=== PATIENT | male | born 1975 | race Caucasian/White ===

== ENCOUNTER 2016-09-17 17:11 | Emergency (ER) | payer MEDICARE ==
[~2016-09-17] VITALS: Ht 175.3 cm; Wt 89.0 kg
[~2016-09-17 17:11] MED LIST: METO50TA PO
[2016-09-17 17:29] VITALS: BP 172/111; PULSE 75; RESP 16; TEMP 98.5; O2SAT 99
[2016-09-17] MEDS ORDERED: SODIUM CHLORIDE 0.9% FLUSH 5 ML FLUSH IVF PRN (18:15)
[2016-09-17] MEDS ORDERED: amLODIPine BESYLATE 5 MG TAB PO ONE (18:15)
--- NOTE | 2016-09-17 18:18 | PD ---
HPI Chief Complaint: ENT Complaint Time Seen by Provider: 17:58 Travel History International Travel<30 days: No Contact w/Intl Traveler<30days: No Traveled to known affect area: No History of Present Illness HPI Patient is a 41-year-old male who presents to emergency room with complaints of nosebleed. Patient reports that he woke up this morning and had an nosebleed to bilateral nares, denies any trauma to his nose. Patient reports that he put a piece of toilet paper into both of his nostrils, and put his head back, reports that he felt that the blood was dripping to the back of his throat. Patient did not apply any pressure to his nose during his epistasis. Patient reports that he had constant nosebleed and reports that bleeding stopped around 1pm this afternoon. Reports that he does not feel light headed or dizzy at this time. Reports that he has resolution of nosebleed. Patient reports concern as he is supposed to be on blood pressure medications, reports that he has not taken his blood pressure medications for the past 3 months as he recently moved and doesn't have a primary care doctor. Patient unsure of which medication he was on in the past as he broke his phone and does not have access to his medication list. Patient also reports that he noticed some dark stools today, reports that he has never had this in the past, reports "i think it's because i swallowed alot of blood today." PFSH Past Medical History Depression: Yes Cardiovascular Problems: Yes (HTN) Diminished Hearing: Yes (Loss of Hearing Bilaterally.) Hypertension: Yes Neurologic: Yes Psychiatric: Yes Immunizations Current: Yes Tetanus Vaccination: Unknown Influenza Vaccination: No Past Surgical History Other Surgery: Yes (Brain Surgery on right side.) Social History Alcohol Use: Yes (OCCASIONAL) Tobacco Use: Yes (1 PPD) Substance Use: No (Patient denies any current use/abuse) Allergies-Medications (Allergen,Severity, Reaction): Coded Allergies: Penicillin (Unverified Allergy, Unknown, 05/01/15) Per pt. Per [facility], [place], [place]. [phone]. Reported Meds & Prescriptions Reported Meds & Active Scripts Active Review of Systems General / Constitutional: No: Fever Eyes: No: Visual changes HENT: Positive: Nosebleed, No: Headaches Cardiovascular: No: Chest Pain or Discomfort Respiratory: No: Shortness of Breath Gastrointestinal: No: Abdominal Pain Genitourinary: No: Dysuria Musculoskeletal: No: Pain Skin: No Rash Neurologic: No: Weakness Psychiatric: No: Depression Endocrine: No: Polydipsia Hematologic/Lymphatic: No: Easy Bruising Physical Exam Narrative GENERAL: nad, nontoxic SKIN: Warm and dry. HEAD: Atraumatic. Normocephalic. EYES: Pupils equal and round. No scleral icterus. No injection or drainage. ENT: No nasal bleeding or discharge. Mucous membranes pink and moist. Patient with dried blood to anterior right nares, no active bleeding NECK: Trachea midline. No JVD. CARDIOVASCULAR: Regular rate and rhythm. No murmur appreciated. RESPIRATORY: No accessory muscle use. Clear to auscultation. Breath sounds equal bilaterally. GASTROINTESTINAL: Abdomen soft, non-tender, nondistended. Hepatic and splenic margins not palpable. MUSCULOSKELETAL: No obvious deformities. No clubbing. No cyanosis. No edema. NEUROLOGICAL: Awake and alert. No obvious cranial nerve deficits. Motor grossly within normal limits. Normal speech. PSYCHIATRIC: Appropriate mood and affect; insight and judgment normal. Data Data Last Documented VS Vital Signs Date Time Temp Pulse Resp B/P Pulse Ox O2 Delivery O2 Flow Rate FiO2 09/17/16 18:27 68 15 158/90 96 Room Air 09/17/16 17:29 98.5 Orders Amlodipine (Norvasc) (09/17/16 18:15) Complete Blood Count With Diff (09/17/16 18:12) Iv Access Insert/Monitor (09/17/16 18:12) Ecg Monitoring (09/17/16 18:12) Oximetry (09/17/16 18:12) Sodium Chloride 0.9% Flush (Ns Flush) (09/17/16 18:15) Labs Laboratory Tests Test 09/17/16 18:25 White Blood Count 9.4 TH/MM3 Red Blood Count 5.37 MIL/MM3 Hemoglobin 15.7 GM/DL Hematocrit 47.1 % Mean Corpuscular Volume 87.6 FL Mean Corpuscular Hemoglobin 29.2 PG Mean Corpuscular Hemoglobin 33.3 % Concent Red Cell Distribution Width 13.0 % Platelet Count 220 TH/MM3 Mean Platelet Volume 9.3 FL Neutrophils (%) (Auto) 57.2 % Lymphocytes (%) (Auto) 24.2 % Monocytes (%) (Auto) 11.1 % Eosinophils (%) (Auto) 6.7 % Basophils (%) (Auto) 0.8 % Neutrophils # (Auto) 5.4 TH/MM3 Lymphocytes # (Auto) 2.3 TH/MM3 Monocytes # (Auto) 1.0 TH/MM3 Eosinophils # (Auto) 0.6 TH/MM3 Basophils # (Auto) 0.1 TH/MM3 CBC Comment DIFF FINAL Differential Comment MDM Medical Decision Making Medical Screen Exam Complete: Yes Emergency Medical Condition: Yes Interpretation(s) Vital Signs Date Time Temp Pulse Resp B/P Pulse Ox O2 Delivery O2 Flow Rate FiO2 09/17/16 17:29 98.5 75 16 172/111 99 Differential Diagnosis Accelerated hypertension, epistasis Narrative Course Patient is a 41-year-old male who presents to emergency room with complaints of epistasis. Patient reports that he had nosebleed from this morning until 1 PM this afternoon, patient did not apply pressure to his nose during bleeding. Patient reports that he does not feel lightheaded or dizzy at this time. Patient reports that he associated is epistasis from high blood pressure as he is supposed to be on blood pressure medications but ran out of his prescription 3 months ago. Patient's blood pressure 172/111 while in the emergency room, patient asymptomatic at this time. Plan to check patient's hemoglobin, will start patient on Norvasc 5 mg. Patient understands need to follow-up with his primary care doctor as soon as possible. Patient with no nosebleed at this time , I did educate patient on had no blood pressure on his nose to stop future nosebleed. Patient defers rectal exam at this time. I did recommend the patient see a GI specialist for colonoscopy as he reports history of cancer in the family. CBC & BMP Diagram 09/17/16 18:25 Hemoglobin is 15.7. Patient will return to emergency room as needed, understands importance of follow-up with primary care doctor and understands need for smoking cessation Diagnosis Primary Impression: Hypertension Qualified Code: I10 - Essential hypertension Additional Impressions: Epistaxis Smoking addiction Patient Instructions: General Instructions Additional Instructions: Please follow-up with your primary care doctor as soon as possible Please follow-up with manager [facility] for outpatient colonoscopy Return to the emergency room as needed Med/Other Pt SpecificInfo: Prescription(s) given Scripts Amlodipine (Norvasc)5 Mg Tab5 Mg PO DAILY #30 TAB Ref 0 Prov:Sri Schaefer DO 09/17/16 Disposition: 01 DISCHARGE HOME Condition: Stable Sri Schaefer DO Sep 17, 2016 18:18
[2016-09-17 18:27] VITALS: BP 158/90; PULSE 68; RESP 15; O2SAT 96
[2016-09-17 18:29] LABS: AUTOMATED NEUTROPHIL # 5.4 TH/MM3 (1.8-7.7); BASOPHIL # 0.1 TH/MM3 (0-0.2); BASOPHIL % 0.8 % (0.0-2.0); EOSINOPHIL # 0.6 TH/MM3 (0-0.4); EOSINOPHIL % 6.7 % (0.0-4.0); HEMATOCRIT 47.1 % (39.0-51.0); HEMO FLAGS DIFF FINAL; LYMPH % 24.2 % (9.0-44.0); LYMPHOCYTE # 2.3 TH/MM3 (1.0-4.8); MEAN CELL VOLUME 87.6 FL (80.0-100.0); MEAN CORPUSCULAR HEMOGLOBIN 29.2 PG (27.0-34.0); MEAN CORPUSCULAR HGB CONC 33.3 % (32.0-36.0); MONO % 11.1 % (0.0-8.0); NEUT % 57.2 % (16.0-70.0); PLATELET COUNT 220 TH/MM3 (150-450); RED BLOOD COUNT 5.37 MIL/MM3 (4.50-5.90); WHITE BLOOD COUNT 9.4 TH/MM3 (4.0-11.0)
[2016-09-17] MEDS ORDERED: AMLO5 PO (18:37)
== END 2016-09-17 18:54 | disposition home or self-care (01) ==
LOC: PHED 17:11 → PHEFT 18:54
DX: R04.0 Epistaxis (principal); I10 Essential (primary) hypertension; F17.210 Nicotine dependence, cigarettes, uncomplicated; Z91.14 Patient's other noncompliance with medication regimen; F41.9 Anxiety disorder, unspecified
CPT/HCPCS: 85025; 99283

== ENCOUNTER 2017-12-28 12:05 | Emergency (ER) | payer MEDICARE ==
[~2017-12-28] VITALS: Ht 175.3 cm; Wt 76.0 kg
[~2017-12-28 12:05] MED LIST changes: +AMLO5 PO; -METO50TA PO
[2017-12-28 12:20] VITALS: BP 141/71; PULSE 94; RESP 16; TEMP 99; O2SAT 96
== END 2017-12-28 13:00 | disposition left against medical advice (07) ==
LOC: PHED 12:05
DX: R10.13 Epigastric pain (principal); R53.1 Weakness; Z53.21 Procedure and treatment not carried out due to patient leaving prior to being seen by health care provider
CPT/HCPCS: 99281

== ENCOUNTER 2017-12-29 00:57 | Inpatient (IN) | payer MEDICARE ==
[2017-12-29] VITALS (10 sets, daily range): BP systolic 126–162; BP diastolic 69–100; PULSE 48–94; RESP 16–20; TEMP 96.2–99; O2SAT 95–97
[~2017-12-29] VITALS: Ht 175.3 cm; Wt 78.1 kg
[2017-12-29] MEDS ORDERED: SODIUM CHLOR 0.9% 1000 ML INJ 1,000 ML IV SCH (01:33)
--- NOTE | 2017-12-29 01:33 | PD ---
HPI Chief Complaint: GI Complaint Time Seen by Provider: 01:23 Travel History International Travel<30 days: No Contact w/Intl Traveler<30days: No Traveled to known affect area: No History of Present Illness HPI The patient is a 42-year-old male with a history of alcohol abuse who complains of upper abdominal pain and vomiting for the past 3 weeks. He denies any melanotic or bloody stools and he denies blood in the vomitus. He states his last alcohol was a week ago when he vomited immediately after he drank it. He states he drank 4 beers a 1 week ago. He denies any fever. His pain is midline epigastric and a burning pain of 6/10. PFSH Past Medical History Depression: Yes Cardiovascular Problems: Yes (HTN) Diminished Hearing: Yes (Loss of Hearing Bilaterally.) Hypertension: Yes Neurologic: Yes Psychiatric: Yes Immunizations Current: Yes Tetanus Vaccination: > 5 Years Influenza Vaccination: No Past Surgical History Other Surgery: Yes (Brain Surgery on right side.) Social History Alcohol Use: Yes (OCCASIONAL) Tobacco Use: Yes (1 PPD) Substance Use: No (Patient denies any current use/abuse) Allergies-Medications (Allergen,Severity, Reaction): Coded Allergies: penicillin G (Unverified Allergy, Unknown, 12/28/17) Per pt. Per [place], [place]. [phone]. Reported Meds & Prescriptions Reported Meds & Active Scripts Active Norvasc (Amlodipine Besylate) 5 Mg Tab 5 Mg PO DAILY Review of Systems Except as stated in HPI: all other systems reviewed are Neg Physical Exam Narrative GENERAL: The patient is alert, oriented 3, moderately dehydrated appearing in moderate apparent distress with the midline epigastric discomfort. His temperature is 99.0 and heart rate 94 but the rest of the vital signs are normal. He does not smell of alcohol. SKIN: Focused skin assessment warm/dry. 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 HEAD: Atraumatic. Normocephalic. EYES: Pupils equal and round. No scleral icterus but the conjunctiva appear injected. ENT: No nasal bleeding or discharge. Mucous membranes pink and moist. NECK: Trachea midline. No JVD. CARDIOVASCULAR: Regular rate and rhythm. No murmur appreciated. RESPIRATORY: No accessory muscle use. Clear to auscultation. Breath sounds equal bilaterally. GASTROINTESTINAL: Abdomen soft, with tenderness to direct palpation in the midline epigastrium, nondistended. Hepatic and splenic margins not palpable. No guarding or rebound is present. MUSCULOSKELETAL: No obvious deformities. No clubbing. No cyanosis. No edema. NEUROLOGICAL: Awake and alert. No obvious cranial nerve deficits. Motor grossly within normal limits. Normal speech. PSYCHIATRIC: Appropriate mood and affect; insight and judgment normal. Data Data Last Documented VS Vital Signs Date Time Temp Pulse Resp B/P (MAP) Pulse Ox O2 Delivery O2 Flow Rate FiO2 12/29/17 03:00 62 18 162/78 (106) 97 Room Air 12/29/17 01:02 99.0 Orders Orders Complete Blood Count With Diff (12/29/17 01:33) Comprehensive Metabolic Panel (12/29/17:33) Lipase (12/29/17 01:33) Urinalysis - C+S If Indicated (12/29/17 01:33) Iv Access Insert/Monitor (12/29/17:33) Ecg Monitoring (12/29/17:33) Oximetry (12/29/17 01:33) Pantoprazole Inj (Protonix Inj) (12/29/17 01:45) Sodium Chlor 0.9% 1000 Ml Inj (Ns 1000 M (12/29/17 01:33) Sodium Chloride 0.9% Flush (Ns Flush) (12/29/17 01:45) Famotidine Inj (Pepcid Inj) (12/29/17 01:45) Al-Mag Hy-Si 40-40-4 Mg/Ml Liq (Mag-Al P (12/29/17 01:45) Lidocaine 2% Viscous (Xylocaine 2% Visco (12/29/17 01:45) Prochlorperazine Inj (Compazine Inj) (12/29/17 01:45) Alcohol (Ethanol) (12/29/17 01:35) Urine Culture (12/29/17 01:50) Hepatitis Profile (12/29/17 03:44) Ct Abd/Pel W Iv Contrast(Rout) (12/29/17 03:46) Labs Laboratory Tests Test 12/29/17 01:50 White Blood Count 12.9 TH/MM3 Red Blood Count 5.58 MIL/MM3 Hemoglobin 16.6 GM/DL Hematocrit 48.4 % Mean Corpuscular Volume 86.6 FL Mean Corpuscular Hemoglobin 29.8 PG Mean Corpuscular Hemoglobin Concent 34.4 % Red Cell Distribution Width 13.6 % Platelet Count 145 TH/MM3 Mean Platelet Volume 10.6 FL CBC Comment AUTO DIFF Differential Total Cells Counted 100 Neutrophils % (Manual) 30 % Band Neutrophils % 1 % Lymphocytes % 46 % Monocytes % 21 % Basophils % 2 % Neutrophils # (Manual) 4.0 TH/MM3 Differential Comment FINAL DIFF MANUAL Atypical Lymphocytes % Platelet Estimate LOW Platelet Morphology Comment NORMAL Red Cell Morphology Comment NORMAL Urine Color BROWN Urine Turbidity CLEAR Urine pH 7.0 Urine Specific [place] 1.015 Urine Protein 100 mg/dL Urine Glucose (UA) 100 mg/dL Urine Ketones TRACE mg/dL Urine Occult Blood TRACE Urine Nitrite POS Urine Bilirubin LARGE Urine Urobilinogen GREATER/EQUAL 8.0 MG/DL Urine Leukocyte Esterase NEG Urine RBC 15-19 /hpf Urine WBC 9-14 /hpf Urine Squamous Epithelial Cells > 8 /hpf Urine Amorphous Sediment SMALL Urine Mucus MANY /lpf Microscopic Urinalysis Comment CULTURE INDICATED Blood Urea Nitrogen 9 MG/DL Creatinine 0.81 MG/DL Random Glucose 118 MG/DL Total Protein 7.6 GM/DL Albumin 3.5 GM/DL Calcium Level 9.4 MG/DL Alkaline Phosphatase 273 U/L Aspartate Amino Transf (AST/SGOT) 1137 U/L Alanine Aminotransferase (ALT/SGPT) 1758 U/L Total Bilirubin 3.3 MG/DL Sodium Level 133 MEQ/L Potassium Level 3.8 MEQ/L Chloride Level 100 MEQ/L Carbon Dioxide Level 28.1 MEQ/L Anion Gap 5 MEQ/L Estimat Glomerular Filtration Rate 105 ML/MIN Lipase 82 U/L Ethyl Alcohol Level LESS THAN 3 MG/DL [facility] Medical Decision Making Medical Screen Exam Complete: Yes Emergency Medical Condition: Yes Medical Record Reviewed: Yes Interpretation(s) White count is 12,900 with platelets 145,046 lymphs and 21 monos. The urine is brown in color with a specific gravity 1.0151 100 protein and 100 glucose and trace ketones and large bilirubin and trace blood and positive nitrite with urobilinogen greater than or equal to 8 and 9-14 white cells and 15-19 red cells and culture is indicated. Differential Diagnosis Viral hepatitis, alcohol hepatitis, common bile duct blockage, pancreatic cancer , pancreatitis, dehydration Narrative Course The patient has elevation of his liver enzymes. The patient does have right upper quadrant pain. He is getting a CAT scan of the abdomen and pelvis. His lipase is normal. A hepatitis profile is still pending. He does have a history of alcohol abuse and alcohol hepatitis is still possible as well as obstructive disease of the pancreatic ducts is possible. He does have prolonged nausea and vomiting for almost a month. Physician Communication Physician Communication I discussed the patient with Dr. Michelle, the patient will be admitted to her here at [facility]. Diagnosis Primary Impression: Abdominal pain Additional Impressions: Elevated liver enzymes Nausea and vomiting Admitting Information Admitting Physician Requests: Admit Jah Covington MD Dec 29, 2017 01:33
[2017-12-29] MEDS ORDERED: PROCHLORPERAZINE INJ 10 MG/2 ML VIAL IV PUSH ONE (01:45)
[2017-12-29] MEDS ORDERED: PANTOPRAZOLE SODIUM 40 MG VIAL IVP ONE (01:45)
[2017-12-29] MEDS ORDERED: FAMOTIDINE 20 MG/2 ML VIAL IV PUSH ONE (01:45)
[2017-12-29] MEDS ORDERED: LIDOCAINE VISCOUS 2% SOLN 15 ML UDC PO ONE (01:45)
[2017-12-29] MEDS ORDERED: ALUMINUM/MAGNESIUM/SIMETH 30 ML CUP PO ONE (01:45)
[2017-12-29] MEDS: SODIUM CHLORIDE 0.9% FLUSH 10 ML FLUSH IV FLUSH PRN (02:09)
[2017-12-29 02:33] LABS: HEMATOCRIT 48.4 % (39.0-51.0); HEMOGLOBIN 16.6 GM/DL (13.0-17.0); MEAN CELL VOLUME 86.6 FL (80.0-100.0); MEAN CORPUSCULAR HEMOGLOBIN 29.8 PG (27.0-34.0); MEAN CORPUSCULAR HGB CONC 34.4 % (32.0-36.0); MEAN PLATELET VOLUME 10.6 FL (7.0-11.0); PLATELET COUNT 145 TH/MM3 (150-450); RED BLOOD COUNT 5.58 MIL/MM3 (4.50-5.90); RED CELL DISTRIBUTION WIDTH 13.6 % (11.6-17.2); WHITE BLOOD COUNT 12.9 TH/MM3 (4.0-11.0)
[2017-12-29 02:43] LABS: CHLORIDE 100 MEQ/L (98-107); SODIUM (NA) 133 MEQ/L (136-145)
[2017-12-29 02:46] LABS: ALBUMIN 3.5 GM/DL (3.4-5.0); BICARBONATE 28.1 MEQ/L (21.0-32.0); CALCIUM 9.4 MG/DL (8.5-10.1); GLUCOSE,RANDOM 118 MG/DL (74-106)
[2017-12-29 02:47] LABS: BLOOD UREA NITROGEN 9 MG/DL (7-18)
[2017-12-29 02:48] LABS: BILIRUBIN, URINE LARGE (NEG); BLOOD, URINE TRACE (NEG); GLUCOSE,URINE 100 mg/dL (NEG); KETONE, URINE TRACE mg/dL (NEG); NITRITE,URINE POS (NEG); URINE LEUKOCYTE ESTERASE NEG (NEG)
[2017-12-29 02:49] LABS: CREATININE 0.81 MG/DL (0.60-1.30); GLOMERULAR FILTRATION RATE 105 ML/MIN (>89)
[2017-12-29 02:51] LABS: TOTAL BILIRUBIN ADULT 3.3 MG/DL (0.2-1.0); TOTAL PROTEIN 7.6 GM/DL (6.4-8.2); URINE COLOR BROWN (YELLW/STRAW)
[2017-12-29 02:52] LABS: ALKALINE PHOSPHATASE 273 U/L (45-117)
[2017-12-29 02:55] LABS: MUCUS URINE MANY /lpf (OCC); SQUAMOUS EPITHELIAL CELL URINE > 8 /hpf (0-5)
[2017-12-29 02:56] LABS: RBC, URINE 15-19 /hpf (0-3)
[2017-12-29 02:57] LABS: ALT (GPT) 1758 U/L (12-78); AMORPHOUS SEDIMENT, URINE SMALL; AST (GOT) 1137 U/L (15-37)
[2017-12-29 03:19] LABS: BANDS 1 % (0-6); BASOPHILS 2 % (0-2); LYMPHOCYTES 46 % (9-44); MONOCYTES 21 % (0-8); POLYS (SEG NEUTROPHILS) 30 % (16-70)
[2017-12-29] MEDS ORDERED: LACTULOSE SYRUP 20 GM/30 ML CUP PO PRN (04:15)
[2017-12-29] MEDS ORDERED: NALOXONE HCL 0.4 MG/ML AMP IV PUSH PRN (04:15)
[2017-12-29] MEDS ORDERED: BISACODYL 10 MG SUPP RECTAL PRN (04:15)
[2017-12-29] MEDS ORDERED: SENNOSIDES 8.6 MG TAB PO PRN (04:15)
[2017-12-29] MEDS ORDERED: MAGNESIUM HYDROXIDE SUSP 30 ML CUP PO PRN (04:15)
[2017-12-29] MEDS ORDERED: SODIUM CHLORIDE 0.9% FLUSH 10 ML FLUSH IV FLUSH PRN (04:15)
[2017-12-29] MEDS ORDERED: IOHEXOL 350 MG/ML 10 ML VIAL (for RAD DIAG) IVCONTRAST ONE (04:32)
[2017-12-29 04:46] LABS: INTERNATIONAL NORMALIZED RATIO 1.3 RATIO; PROTHROMBIN TIME - PATIENT 12.9 SEC (9.8-11.6)
[2017-12-29] MEDS: SODIUM CHLOR 0.9% 1000 ML INJ 1,000 ML IV SCH ×2 (04:55→18:14)
--- NOTE | 2017-12-29 04:56 | RADRPT ---
EXAM DATE: 12/29/2017 4:27 AM EDT AGE/SEX: 42 years / Male INDICATIONS: Upper abdominal pain. CLINICAL DATA: This is the patient's initial encounter. Patient reports that signs and symptoms have been present for 3 days and indicates a pain score of 5/10. MEDICAL/SURGICAL HISTORY: Hypertension. None. ORAL CONTRAST: No oral contrast ingested. RADIATION DOSE: 9.18 CTDI (mGy) COMPARISON: No prior exams available for comparison. TECHNIQUE: Multiple contiguous axial images were obtained through the abdomen and pelvis following b olus infusion of 93 ml Omnipaque 350 (iohexol) nonionic water-soluble contrast as a single exam dos e. No oral contrast ingested. Using automated exposure control and adjustment of the mA and/or kV ac cording to patient size, radiation dose was kept as low as reasonably achievable to obtain optimal di agnostic quality images. DICOM format image data is available electronically for review and comparis on. FINDINGS: Lower Lungs: The visualized lower lungs are clear. Liver: The liver has a homogeneous density without space-occupying lesion. There is no dilation of th e biliary tree. There is gallbladder wall thickening versus pericholecystic fluid. No calcified galls tones are noted. Spleen: Homogeneous density without enlargement. Pancreas: Unremarkable without mass or calcification. Kidneys: Normal in size and shape. No evidence of mass or hydronephrosis. Adrenal Glands: Unremarkable. Aorta: The aorta and proximal iliac vessels are grossly unremarkable without aneurysmal dilation. Bowel/Mesentery: The bowel loops are grossly unremarkable. The cecum and sigmoid colon have a normal configuration. Abdominal Wall: Intact. Retroperitoneum: No evidence of adenopathy in the retrocrural, para-aortic, or deep pelvic regions. Bladder: Contours are smooth. Reproductive Organs: No abnormal masses or calcifications seen. Inguinal: The inguinal region is unremarkable without evidence of adenopathy. Bony Structures: Unremarkable. CONCLUSION: 1. There is low-density surrounding the gallbladder which could represent gallbladder wall thickenin g versus pericholecystic fluid. There are no calcified gallstones or evidence of biliary obstruction. Electronically signed by: Nikolai Bolden MD 12/29/2017 4:55 AM EDT
[2017-12-29] MEDS: DOCUSATE SODIUM 50 MG/SENNA 8.6 MG TAB PO SCH ×2 (08:44→21:19)
[2017-12-29] MEDS: SODIUM CHLORIDE 0.9% FLUSH 10 ML FLUSH IV FLUSH SCH ×2 (08:44→21:21)
[2017-12-29 08:59] LABS: AUTOMATED NEUTROPHIL # 4.4 TH/MM3 (1.8-7.7); BASOPHIL % 0.3 % (0.0-2.0); EOSINOPHIL # 0.2 TH/MM3 (0-0.4); EOSINOPHIL % 1.8 % (0.0-4.0); HEMATOCRIT 45.2 % (39.0-51.0); LYMPH % 42.8 % (9.0-44.0); LYMPHOCYTE # 5.2 TH/MM3 (1.0-4.8); MEAN CELL VOLUME 85.9 FL (80.0-100.0); MEAN CORPUSCULAR HEMOGLOBIN 30.5 PG (27.0-34.0); MEAN CORPUSCULAR HGB CONC 35.5 % (32.0-36.0); MEAN PLATELET VOLUME 12.1 FL (7.0-11.0); MONO % 18.2 % (0.0-8.0); MONOCYTE # 2.2 TH/MM3 (0-0.9); NEUT % 36.9 % (16.0-70.0); PLATELET COUNT 138 TH/MM3 (150-450); RED BLOOD COUNT 5.26 MIL/MM3 (4.50-5.90); RED CELL DISTRIBUTION WIDTH 13.6 % (11.6-17.2)
[2017-12-29 09:09] LABS: CHLORIDE 106 MEQ/L (98-107); SODIUM (NA) 139 MEQ/L (136-145)
[2017-12-29 09:14] LABS: CALCIUM 8.7 MG/DL (8.5-10.1)
[2017-12-29 09:15] LABS: ALBUMIN 3.1 GM/DL (3.4-5.0); BICARBONATE 24.9 MEQ/L (21.0-32.0); BLOOD UREA NITROGEN 7 MG/DL (7-18); GLUCOSE,RANDOM 97 MG/DL (74-106)
[2017-12-29 09:18] LABS: AST (GOT) 895 U/L (15-37); CREATININE 0.61 MG/DL (0.60-1.30); GLOMERULAR FILTRATION RATE 146 ML/MIN (>89)
[2017-12-29 09:20] LABS: TOTAL BILIRUBIN ADULT 3.7 MG/DL (0.2-1.0); TOTAL PROTEIN 6.9 GM/DL (6.4-8.2)
[2017-12-29 09:21] LABS: ALKALINE PHOSPHATASE 247 U/L (45-117)
[2017-12-29 09:25] LABS: BANDS 2 % (0-6); LYMPHOCYTES 60 % (9-44); MONOCYTES 9 % (0-8); NEUTROPHIL # MANUAL DIFF 3.5 TH/MM3 (1.8-7.7); POLYS (SEG NEUTROPHILS) 27 % (16-70)
--- NOTE | 2017-12-29 09:54 | RADRPT ---
EXAM DATE: 12/29/2017 8:26 AM EDT AGE/SEX: 42 years / Male INDICATIONS: Right upper quadrant pain. CLINICAL DATA: This is the patient's initial encounter. Patient reports that signs and/or symptoms h ave been present for 1 day and indicates a pain score of 3/10. MEDICAL/SURGICAL HISTORY: Hypertension. Hearing loss. Depression. Violent behavior. Psoriasis. . H emorrhagic repair. COMPARISON: [facility], CT ABDOMEN & PELVIS W CONTRAST, 12/29/2017. . MEASUREMENTS: Liver:__ 17.2 cm. Common Bile Duct:__ 5mm. FINDINGS: Liver: Normal echotexture without focal lesion or ductal dilatation. Portal Vein: Hepatopedal flow seen in portal vein. Common Duct: No intraluminal mass or stone visualized. Gallbladder: There is a thick edematous gallbladder wall measuring up to 1.2 cm. There is pericholec ystic fluid. Gallstones are not clearly seen. Technologist reports the patient does not have pain ove r the gallbladder. Its uncertain if the patient is on pain medication. Pancreas: The visualized portions are within normal limits Right Kidney: Normal echotexture and cortical thickness. No mass or hydronephrosis. Other: None. CONCLUSION: Thickened gallbladder wall with pericholecystic fluid concerning for cholecystitis. A gallstone was n ot seen. Electronically signed by: Wes Dinh MD 12/29/2017 9:53 AM EDT
[2017-12-29 09:56] LABS: ALT (GPT) 1562 U/L (12-78)
--- NOTE | 2017-12-29 14:07 | HHI.HP ---
HPI [facility] Primary Care Physician No Primary Care Physician Admission Diagnosis Abdominal pain, elevated liver enzymes, nausea and vomiting Diagnoses: Chief Complaint: Abdominal pain Travel History International Travel<30 Days: No Contact w/Intl Traveler <30 Da: No Traveled to Known Affected Are: No History of Present Illness Mr. Alvarado is a pleasant 42-year-old male with a history of alcohol abuse, psoriasis who presented to the emergency department on 12/29/2017 due to right upper quadrant abdominal pain as well as nausea and vomiting for the last 3 weeks. Patient denies any blood in the vomitus or stool. He reports no chest pain, shortness of breath, fever. However he has been having a lot of chills. ED workup indicates leukocytosis with WBC 12.0, AST 1137, ALT 1758, alk phos 273 total bilirubin 3.3. Gallbladder ultrasound shows pericholecystic fluid concerning for cholecystitis. Review of Systems Except as stated in HPI: all other systems reviewed are Neg Past Family Social History Past Medical History Depression, hypertension, diminished hearing, psoriasis Past Surgical History Brain surgery on the right side - Unspecified. Reported Medications Norvasc 5 mg daily. Allergies: Coded Allergies: penicillin G (Unverified Allergy, Unknown, 12/28/17) Per pt. Per [place], [place] [phone]. Family History No family history of heart disease or cancer. Social History Patient drinks alcohol occasionally and smokes about 1 pack a day. Denies using illicit drugs. Physical Exam Vital Signs Vital Signs Date Time Temp Pulse Resp B/P (MAP) Pulse Ox O2 Delivery O2 Flow Rate FiO2 12/29/17 12:00 97.0 50 16 142/70 (94) 96 12/29/17 08:00 97.1 48 16 145/69 (94) 96 12/29/17 05:00 96.2 61 20 152/75 (100) 95 12/29/17 04:44 60 18 132/70 (90) 96 12/29/17 04:00 60 16 144/71 (95) 96 Room Air 12/29/17 03:00 62 18 162/78 (106) 97 Room Air 12/29/17 02:00 60 16 152/86 (108) 96 Room Air 12/29/17 01:02 99.0 94 16 126/90 (102) 95 Room Air Physical Exam GENERAL: This is a well-nourished, well-developed patient, in no apparent distress. SKIN: Diffuse psoriatic rash present. HEAD: Atraumatic. Normocephalic. No temporal or scalp tenderness. EYES: Pupils equal round and reactive. No injection or drainage. ENT: Nose without bleeding, purulent drainage or septal hematoma. Airway patent. NECK: Trachea midline. No lymphadenopathy. Supple, nontender, no meningeal signs. CARDIOVASCULAR: Regular rate and rhythm without murmurs, gallops, or rubs. No JVD. RESPIRATORY: Clear to auscultation. Breath sounds equal bilaterally. No wheezes , rales, or rhonchi. GASTROINTESTINAL: Abdomen soft, tender to palpation over right upper quadrant, nondistended. No guarding. MUSCULOSKELETAL: Extremities without clubbing, cyanosis, or edema. NEUROLOGICAL: Awake and alert. Cranial nerves II through XII intact. No focal neurological deficits. Normal speech. Laboratory Laboratory Tests Test 12/29/17 01:50 12/29/17 04:10 12/29/17 08:30 White Blood Count 12.9 12.0 Red Blood Count 5.58 5.26 Hemoglobin 16.6 16.0 Hematocrit 48.4 45.2 Mean Corpuscular Volume 86.6 85.9 Mean Corpuscular Hemoglobin 29.8 30.5 Mean Corpuscular Hemoglobin Concent 34.4 35.5 Red Cell Distribution Width 13.6 13.6 Platelet Count 145 138 Mean Platelet Volume 10.6 12.1 CBC Comment AUTO DIFF AUTO DIFF Differential Total Cells Counted 100 100 Neutrophils % (Manual) 30 27 Band Neutrophils % 1 2 Lymphocytes % 46 60 Monocytes % 21 9 Basophils % 2 Neutrophils # (Manual) 4.0 3.5 Differential Comment FINAL DIFF MANUAL FINAL DIFF MANUAL Atypical Lymphocytes Platelet Estimate LOW LOW Platelet Morphology Comment NORMAL NORMAL Red Cell Morphology Comment NORMAL NORMAL Urine Color BROWN Urine Turbidity CLEAR Urine pH 7.0 Urine Specific [place] 1.015 Urine Protein 100 Urine Glucose (UA) 100 Urine Ketones TRACE Urine Occult Blood TRACE Urine Nitrite POS Urine Bilirubin LARGE Urine Urobilinogen GREATER/EQUAL 8.0 Urine Leukocyte Esterase NEG Urine RBC 15-19 Urine WBC 9-14 Urine Squamous Epithelial Cells > 8 Urine Amorphous Sediment SMALL Urine Mucus MANY Microscopic Urinalysis Comment CULTURE INDICATED Blood Urea Nitrogen 9 7 Creatinine 0.81 0.61 Random Glucose 118 97 Total Protein 7.6 6.9 Albumin 3.5 3.1 Calcium Level 9.4 8.7 Alkaline Phosphatase 273 247 Aspartate Amino Transf (AST/SGOT) 1137 895 Alanine Aminotransferase (ALT/SGPT) 1758 1562 Total Bilirubin 3.3 3.7 Sodium Level 133 139 Potassium Level 3.8 3.8 Chloride Level 100 106 Carbon Dioxide Level 28.1 24.9 Anion Gap 5 8 Estimat Glomerular Filtration Rate 105 146 Lipase 82 Ethyl Alcohol Level LESS THAN 3 Prothrombin Time 12.9 Prothromb Time International Ratio 1.3 Activated Partial Thromboplast Time 31.5 Hepatitis A IgM Antibody NONREACTIVE Hepatitis B Surface Antigen NONREACTIVE Hepatitis B Core IgM Antibody REACTIVE Hepatitis C IgG Antibody REACTIVE Neutrophils (%) (Auto) 36.9 Lymphocytes (%) (Auto) 42.8 Monocytes (%) (Auto) 18.2 Eosinophils (%) (Auto) 1.8 Basophils (%) (Auto) 0.3 Neutrophils # (Auto) 4.4 Lymphocytes # (Auto) 5.2 Monocytes # (Auto) 2.2 Eosinophils # (Auto) 0.2 Basophils # (Auto) 0.0 Eosinophils % 2 Lactic Acid Level 1.1 Date/Time Source Procedure Growth Status 12/29/17 01:50 Urine Clean Catch Urine Culture Pending Received Result Diagram: 12/29/17 0830 12/29/17 0830 Imaging Last Impressions Abdomen/Pelvis CT 12/29/17 0346 Signed Impressions: CONCLUSION: 1. There is low-density surrounding the gallbladder which could represent gall bladder wall thickening versus pericholecystic fluid. There are no calcified ga llstones or evidence of biliary obstruction. Gall Bladder Ultrasound 12/29/17 0000 Signed Impressions: CONCLUSION: Thickened gallbladder wall with pericholecystic fluid concerning for cholecysti tis. A gallstone was not seen. Caprini VTE Risk Assessment Caprini VTE Risk Assessment: No/Low Risk (score <= 1) Caprini Risk Assessment Model Point Value = 1 Point Value = 2 Point Value = 3 Point Value = 5 Age 41-60 Minor surgery BMI > 25 kg/m2 Swollen legs Varicose veins or History of unexplained or recurrent spontaneous Oral contraceptives or hormone replacement Sepsis (< 1 month) Serious lung disease, including pneumonia (< 1 month) Abnormal pulmonary function Acute myocardial infarction Congestive heart failure (< 1 month) History of inflammatory bowel disease Medical patient at bed rest Age 61-74 Arthroscopic surgery Major open surgery (> 45 min) Laparoscopic surgery (> 45 min) Malignancy Confined to bed (> 72 hours) Immobilizing plaster cast Central venous access Age >= 75 History of VTE Family history of VTE Factor V Leiden Prothrombin [id number] Lupus anticoagulant Anticardiolipin antibodies Elevated serum homocysteine Heparin-induced thrombocytopenia Other congenital or acquired thrombophilia Stroke (< 1 month) Elective arthroplasty Hip, pelvis, or leg fracture Acute spinal cord injury (< 1 month) Prophylaxis Regimen Total Risk Factor Score Risk Level Prophylaxis Regimen 0-1 Low Early ambulation 2 Moderate Order ONE of the following: *Sequential Compression Device (SCD) *Heparin 5000 units SQ BID 3-4 Higher Order ONE of the following medications: *Heparin 5000 units SQ TID *Enoxaparin/Lovenox 40 mg SQ daily (WT < 150 kg, CrCl > 30 mL/min) *Enoxaparin/Lovenox 30 mg SQ daily (WT < 150 kg, CrCl > 10-29 mL/min) *Enoxaparin/Lovenox 30 mg SQ BID (WT < 150 kg, CrCl > 30 mL/min) AND/OR *Sequential Compression Device (SCD) 5 or more Highest Order ONE of the following medications: *Heparin 5000 units SQ TID (Preferred with Epidurals) *Enoxaparin/Lovenox 40 mg SQ daily (WT < 150 kg, CrCl > 30 mL/min) *Enoxaparin/Lovenox 30 mg SQ daily (WT < 150 kg, CrCl > 10-29 mL/min) *Enoxaparin/Lovenox 30 mg SQ BID (WT < 150 kg, CrCl > 30 mL/min) AND *Sequential Compression Device (SCD) Assessment and Plan Problem List: (1) Acute cholecystitis ICD Code: K81.0 - Acute cholecystitis (2) Psoriasis ICD Code: L40.9 - Psoriasis, unspecified (3) Tobacco abuse ICD Code: Z72.0 - Tobacco use (4) Alcohol abuse ICD Code: F10.10 - Alcohol abuse, uncomplicated Assessment and Plan Mr. Alvarado is a pleasant 42-year-old male with a history of depression, psoriasis who presents to the emergency department on 12/29/2017 due to right upper quadrant abdominal pain, nausea vomiting that started 3-4 days prior to this admission. ED workup indicates probable cholecystitis. Acute cholecystitis -We will start patient on ceftriaxone 1 g every 24 hours. -Patient has allergies to penicillin -occurred in childhood and allergy was mild. -Consult general surgery for possible cholecystectomy. -Pain medications -Percocet and Dilaudid as needed. Tobacco abuse Alcohol abuse -Counseled patient regarding tobacco and alcohol abuse. Psoriasis -outpatient follow-up. Full code. SCDs. Kriss Naranjo DO Dec 29, 2017 14:07
[2017-12-29] MEDS: cefTRIAXone INJ 1,000 MG in SODIUM CHLORIDE 0.9% INJ 100 ML IV SCH (14:47)
[2017-12-29] MEDS: NICOTINE 21 MG/24 HR PATCH T-DERMAL SCH (14:55)
--- NOTE | 2017-12-29 18:26 | PD.CONS ---
HPI History of Present Illness This is a 42 year old male who was admitted to the hospital with history of recurrent abdominal pain for the last 3 weeks. He reports the pain located in the right upper quadrant and epigastrium. Moderately severe in intensity. With occasional radiation to the back. This was associated with nausea vomiting. Workup in the ER revealed presence of thickened gallbladder, pericholecystic fluid collection consistent with acute cholecystitis.. No gallstones are visualized His liver panel was also normal. He had elevated bilirubin, transaminases and alkaline phosphatase. He was also found to be positive for hepatitis C antibodies and hepatitis B core antibody. His present girlfriend reports having recently diagnosed hepatitis B. On direct questioning he denies any history of heartburn dysphagia hematemesis melena hematochezia constipation diarrhea. He reports anorexia weight loss over the last several weeks. PFSH Past Medical History Depression, hypertension, diminished hearing, psoriasis Past Surgical History Brain surgery on the right side - Unspecified. Coded Allergies: penicillin G (Unverified Allergy, Unknown, 12/28/17) Per pt. Per [facility], [place], [place]. [phone]. Medications See nursing notes Family History No family history of heart disease or cancer. Social History Patient drinks alcohol occasionally and smokes about 1 pack a day. Denies using illicit drugs.. He has multiple tattoos. Review of Systems Gastrointestinal: COMPLAINS OF: Abdominal pain, Nausea, Vomiting, Anorexia GI Exam Vitals I&O Vital Signs Date Time Temp Pulse Resp B/P (MAP) Pulse Ox O2 Delivery O2 Flow Rate FiO2 12/29/17 12:00 97.0 50 16 142/70 (94) 96 12/29/17 08:00 97.1 48 16 145/69 (94) 96 12/29/17 05:00 96.2 61 20 152/75 (100) 95 12/29/17 04:44 60 18 132/70 (90) 96 12/29/17 04:00 60 16 144/71 (95) 96 Room Air 12/29/17 03:00 62 18 162/78 (106) 97 Room Air 12/29/17 02:00 60 16 152/86 (108) 96 Room Air 12/29/17 01:02 99.0 94 16 126/90 (102) 95 Room Air I/O 6/21/18 12/28/17 12/28/17 12/29/17 12/29/17 12/29/17 07:00 15:00 23:00 07:00 15:00 23:00 Intake Total 1000 ml Balance 1000 ml Intake Oral 0 ml IV Total 1000 ml Imaging Ultrasound and CT scan showed thickened gallbladder wall with fluid around the gallbladder. No gallstones visualized. Size of common bile duct not reported. Laboratory Test 12/29/17 01:50 12/29/17 04:10 12/29/17 08:30 White Blood Count 12.9 TH/MM3 12.0 TH/MM3 Red Blood Count 5.58 MIL/MM3 5.26 MIL/MM3 Hemoglobin 16.6 GM/DL 16.0 GM/DL Hematocrit 48.4 % 45.2 % Mean Corpuscular Volume 86.6 FL 85.9 FL Mean Corpuscular Hemoglobin 29.8 PG 30.5 PG Mean Corpuscular Hemoglobin Concent 34.4 % 35.5 % Red Cell Distribution Width 13.6 % 13.6 % Platelet Count 145 TH/MM3 138 TH/MM3 Mean Platelet Volume 10.6 FL 12.1 FL CBC Comment AUTO DIFF AUTO DIFF Differential Total Cells Counted 100 100 Neutrophils % (Manual) 30 % 27 % Band Neutrophils % 1 % 2 % Lymphocytes % 46 % 60 % Monocytes % 21 % 9 % Basophils % 2 % Neutrophils # (Manual) 4.0 TH/MM3 3.5 TH/MM3 Differential Comment FINAL DIFF MANUAL FINAL DIFF MANUAL Atypical Lymphocytes % Platelet Estimate LOW LOW Platelet Morphology Comment NORMAL NORMAL Red Cell Morphology Comment NORMAL NORMAL Urine Color BROWN Urine Turbidity CLEAR Urine pH 7.0 Urine Specific [place] 1.015 Urine Protein 100 mg/dL Urine Glucose (UA) 100 mg/dL Urine Ketones TRACE mg/dL Urine Occult Blood TRACE Urine Nitrite POS Urine Bilirubin LARGE Urine Urobilinogen GREATER/EQUAL 8.0 MG/DL Urine Leukocyte Esterase NEG Urine RBC 15-19 /hpf Urine WBC 9-14 /hpf Urine Squamous Epithelial Cells > 8 /hpf Urine Amorphous Sediment SMALL Urine Mucus MANY /lpf Microscopic Urinalysis Comment CULTURE INDICATED Blood Urea Nitrogen 9 MG/DL 7 MG/DL Creatinine 0.81 MG/DL 0.61 MG/DL Random Glucose 118 MG/DL 97 MG/DL Total Protein 7.6 GM/DL 6.9 GM/DL Albumin 3.5 GM/DL 3.1 GM/DL Calcium Level 9.4 MG/DL 8.7 MG/DL Alkaline Phosphatase 273 U/L 247 U/L Aspartate Amino Transf (AST/SGOT) 1137 U/L 895 U/L Alanine Aminotransferase (ALT/SGPT) 1758 U/L 1562 U/L Total Bilirubin 3.3 MG/DL 3.7 MG/DL Sodium Level 133 MEQ/L 139 MEQ/L Potassium Level 3.8 MEQ/L 3.8 MEQ/L Chloride Level 100 MEQ/L 106 MEQ/L Carbon Dioxide Level 28.1 MEQ/L 24.9 MEQ/L Anion Gap 5 MEQ/L 8 MEQ/L Estimat Glomerular Filtration Rate 105 ML/MIN 146 ML/MIN Lipase 82 U/L Ethyl Alcohol Level LESS THAN 3 MG/DL Prothrombin Time 12.9 SEC Prothromb Time International Ratio 1.3 RATIO Activated Partial Thromboplast Time 31.5 SEC Hepatitis A IgM Antibody NONREACTIVE Hepatitis B Surface Antigen NONREACTIVE Hepatitis B Core IgM Antibody REACTIVE Hepatitis C IgG Antibody REACTIVE Neutrophils (%) (Auto) 36.9 % Lymphocytes (%) (Auto) 42.8 % Monocytes (%) (Auto) 18.2 % Eosinophils (%) (Auto) 1.8 % Basophils (%) (Auto) 0.3 % Neutrophils # (Auto) 4.4 TH/MM3 Lymphocytes # (Auto) 5.2 TH/MM3 Monocytes # (Auto) 2.2 TH/MM3 Eosinophils # (Auto) 0.2 TH/MM3 Basophils # (Auto) 0.0 TH/MM3 Eosinophils % 2 % Lactic Acid Level 1.1 mmol/L Date/Time Source Procedure Growth Status 12/29/17 01:50 Urine Clean Catch Urine Culture Pending Received Physical Examination HEENT: Pupils round and reactive to light; normocephalic; atraumatic; no jaundice. Throat is clear. NECK: Neck is supple, no JVD, no lymphadenopathy. CHEST: Chest is clear to auscultation and percussion. CARDIAC: Regular rate and rhythm with no murmur gallop or rubs. ABDOMEN: Soft, tenderness present in the epigastrium and right upper quadrant. Mild guarding present. No rigidity. Liver palpable 4 cm below right costal margin smooth tender no other masses felt. Spleen not palpable. No ascites bowel sounds are normal EXTREMITIES: No clubbing, cyanosis, or edema. SKIN: Normal; no rash; no jaundice. CHIEF NURSE EXECUTIVE: No focal deficits; alert and oriented times three. No focal neurological deficits Assessment and Plan Assessment: (1) Choledocholithiasis ICD Codes: K80.50 - Calculus of bile duct without cholangitis or cholecystitis without obstruction (2) Hepatitis C antibody positive in blood ICD Codes: R76.8 - Other specified abnormal immunological findings in serum (3) Acute hepatitis B ICD Codes: B16.9 - Acute hepatitis B without delta-agent and without hepatic coma (4) Acute cholecystitis ICD Codes: K81.0 - Acute cholecystitis (5) Elevated liver enzymes ICD Codes: R74.8 - Abnormal levels of other serum enzymes Status: Acute Plan 1. Labs-HCVRNA,, hepatitis C genotype, hepatitis B DNA 2. MRCP 3. Decision to do ERCP to be based on MRCP results. Stepan Gupta MD Dec 29, 2017 18:26
[2017-12-29] MEDS: MORPHINE SULFATE 2 MG/ML SYRINGE IV PUSH PRN (21:20)
[2017-12-30] VITALS: BP 168/85; PULSE 77; RESP 20; TEMP 99.9; O2SAT 94
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
[2017-12-30] MEDS: MORPHINE SULFATE 2 MG/ML SYRINGE IV PUSH PRN (04:15)
[2017-12-30] MEDS: ONDANSETRON ODT 4 MG TAB PO PRN (04:21)
[2017-12-30 07:03] LABS: HEMOGLOBIN 16.1 GM/DL (13.0-17.0); MEAN CELL VOLUME 85.7 FL (80.0-100.0); MEAN CORPUSCULAR HEMOGLOBIN 30.1 PG (27.0-34.0); MEAN CORPUSCULAR HGB CONC 35.1 % (32.0-36.0); MEAN PLATELET VOLUME 11.9 FL (7.0-11.0); PLATELET COUNT 147 TH/MM3 (150-450); RED BLOOD COUNT 5.36 MIL/MM3 (4.50-5.90); RED CELL DISTRIBUTION WIDTH 14.2 % (11.6-17.2); WHITE BLOOD COUNT 15.4 TH/MM3 (4.0-11.0)
[2017-12-30 07:04] LABS: CHLORIDE 107 MEQ/L (98-107); SODIUM (NA) 139 MEQ/L (136-145)
[2017-12-30 07:09] LABS: ALBUMIN 3.2 GM/DL (3.4-5.0); CALCIUM 8.4 MG/DL (8.5-10.1)
[2017-12-30 07:10] LABS: BLOOD UREA NITROGEN 6 MG/DL (7-18); GLUCOSE,RANDOM 121 MG/DL (74-106)
[2017-12-30 07:13] LABS: AST (GOT) 585 U/L (15-37); CREATININE 0.61 MG/DL (0.60-1.30); GLOMERULAR FILTRATION RATE 146 ML/MIN (>89)
[2017-12-30 07:14] LABS: TOTAL BILIRUBIN ADULT 4.5 MG/DL (0.2-1.0); TOTAL PROTEIN 6.7 GM/DL (6.4-8.2)
[2017-12-30 07:16] LABS: ALKALINE PHOSPHATASE 253 U/L (45-117)
[2017-12-30 07:20] LABS: ALT (GPT) 1398 U/L (12-78)
[2017-12-30 07:49] VITALS: BP 138/89; PULSE 61; RESP 20; TEMP 97.8; O2SAT 97
[2017-12-30] MEDS: SODIUM CHLOR 0.9% 1000 ML INJ 1,000 ML IV SCH ×2 (07:49→23:14)
[2017-12-30 07:53] LABS: ATYPICAL LYMPHOCYTES 12 % (0-0); BANDS 7 % (0-6); LYMPHOCYTES 31 % (9-44); MONOCYTES 13 % (0-8); NEUTROPHIL # MANUAL DIFF 6.8 TH/MM3 (1.8-7.7); POLYS (SEG NEUTROPHILS) 37 % (16-70)
[2017-12-30] MEDS ORDERED: MORPHINE SULFATE 4 MG/ML INJ IV PRN (08:15)
[2017-12-30] MEDS: NICOTINE 21 MG/24 HR PATCH T-DERMAL SCH (08:23)
[2017-12-30] MEDS: SODIUM CHLORIDE 0.9% FLUSH 10 ML FLUSH IV FLUSH SCH ×2 (08:23→20:05)
[2017-12-30] MEDS: REMOVE OLD PATCH T-DERMAL SCH (08:26)
--- NOTE | 2017-12-30 08:42 | HHI.PR ---
Subjective Remarks Follow up for transaminitis, RUQ abdominal pain. Patient complains of persistent right upper quadrant abdominal pain, no fever or chills. Objective Vitals Vital Signs Date Time Temp Pulse Resp B/P (MAP) Pulse Ox O2 Delivery O2 Flow Rate FiO2 12/30/17 07:49 97.8 61 20 138/89 (105) 97 12/30/17 00:00 99.9 77 20 168/85 (112) 94 12/29/17 20:00 98.3 74 20 160/100 (120) 97 12/29/17 16:00 97.0 48 18 138/70 (92) 96 12/29/17 12:00 97.0 50 16 142/70 (94) 96 I/O 12/29/17 12/29/17 12/29/17 12/30/17 12/30/17 12/30/17 07:00 15:00 23:00 07:00 15:00 23:00 Intake Total 1000 ml 800 ml 0 ml Balance 1000 ml 800 ml 0 ml Intake Oral 0 ml 800 ml 0 ml IV Total 1000 ml # Voids 3 Result Diagram: 12/30/17 0609 12/30/17 0609 Imaging Last Impressions Abdomen/Pelvis CT 12/29/17 0346 Signed Impressions: CONCLUSION: 1. There is low-density surrounding the gallbladder which could represent gall bladder wall thickening versus pericholecystic fluid. There are no calcified ga llstones or evidence of biliary obstruction. Gall Bladder Ultrasound 12/29/17 0000 Signed Impressions: CONCLUSION: Thickened gallbladder wall with pericholecystic fluid concerning for cholecysti tis. A gallstone was not seen. Objective Remarks GENERAL: Alert, oriented x 3, NAD. SKIN: Warm and dry. HEAD: Normocephalic. EYES: No scleral icterus. No injection or drainage. NECK: Supple, trachea midline. No JVD or lymphadenopathy. CARDIOVASCULAR: Regular rate and rhythm without murmurs, gallops, or rubs. RESPIRATORY: Breath sounds equal bilaterally. No accessory muscle use. GASTROINTESTINAL: Abdomen soft, Tender to palpation, rojelio on the RUQ, nondistended. MUSCULOSKELETAL: No cyanosis, or edema. BACK: Nontender without obvious deformity. No CVA tenderness. Procedures None. A/P Problem List: (1) Acute cholecystitis ICD Code: K81.0 - Acute cholecystitis (2) Psoriasis ICD Code: L40.9 - Psoriasis, unspecified (3) Tobacco abuse ICD Code: Z72.0 - Tobacco use (4) Alcohol abuse ICD Code: F10.10 - Alcohol abuse, uncomplicated Assessment and Plan Mr. Alvarado is a pleasant 42-year-old male with a history of depression, psoriasis who presents to the emergency department on 12/29/2017 due to right upper quadrant abdominal pain, nausea vomiting that started 3-4 days prior to this admission. ED workup indicates probable cholecystitis. Acute cholecystitis -Continue ceftriaxone 1 g every 24 hours. No allergic reactions to ceftriaxone. -Consult general surgery for possible cholecystectomy. -Pain medications - [place] and Morphine PRN. -Appreciate GI and general surgery input. Patient will undergo MRCP today. -If MRCP shows any obstruction, patient may need to be transferred to the main hospital for possible ERCP. Tobacco abuse Alcohol abuse -Counseled patient regarding tobacco and alcohol abuse. Psoriasis -outpatient follow-up. Full code. SCDs. Kriss Naranjo DO Dec 30, 2017 8:42 am
[2017-12-30] MEDS ORDERED: PNEUMOCOCCAL POLYVALENT INJ 25 MCG/0.5 ML SYR IM ONE (09:00)
[2017-12-30] MEDS: DOCUSATE SODIUM 50 MG/SENNA 8.6 MG TAB PO SCH ×2 (09:00→20:06)
[2017-12-30] MEDS ORDERED: ACETAMINOPHEN 500 MG CPLT PO PRN (09:00)
--- NOTE | 2017-12-30 10:28 | RADRPT ---
EXAM DATE: 12/30/2017 10:21 AM EDT AGE/SEX: 42 years / Male INDICATIONS: MRI clearance CLINICAL DATA: This is the patient's subsequent encounter. Patient reports that signs and symptoms h ave been present for 3 days and indicates a pain score of 0/10. MEDICAL/SURGICAL HISTORY: Hypertension. Craniotomy. COMPARISON: No prior exams available for comparison. FINDINGS: Examination of the skull demonstrates no evidence of fracture. The paranasal sinuses are clear. The pituitary fossa is normal in configuration. Previous right-sided craniotomy. There are some plates a nd screws of the calvarium. No aneurysm clip seen.. CONCLUSION: Patient is safe for MRI. Electronically signed by: Ger Sanz MD 12/30/2017 10:27 AM EDT
--- NOTE | 2017-12-30 10:48 | RADRPT ---
EXAM DATE: 12/30/2017 10:39 AM EDT AGE/SEX: 42 years / Male INDICATIONS: Abdominal pain. Cholecystitis. CLINICAL DATA: This is the patient's initial encounter. Patient reports that signs and symptoms have been present for 2 days and indicates a pain score of 4/10. MEDICAL/SURGICAL HISTORY: Hypertension. Craniotomy. Of the COMPARISON: No prior exams available for comparison. TECHNIQUE: Multiplanar, multisequence images of the abdomen were obtained without contrast including dedicated cholangiographic images. FINDINGS: Liver: Appears unremarkable. Intrahepatic Bile Ducts: There is no intrahepatic biliary ductal dilatation. Common Bile Duct: The common bile duct is normal in caliber measuring 3 to 4 mm. No filling defects or obstructing lesions are identified. Gallbladder: Abnormal appearance of the gallbladder with extensive gallbladder wall thickening and p ericholecystic fluid. Gallstone not seen.. Pancreas: The pancreas appears normal in signal with no focal parenchymal abnormalities. The pancrea tic duct is normal in caliber with no filling defects, or obstructing lesions identified. CONCLUSION: 1. Gallbladder wall thickening and pericholecystic fluid concerning for acute cholecystitis. 2. No intra or extrahepatic biliary ductal dilatation. Electronically signed by: Ger Sanz MD 12/30/2017 10:47 AM EDT
[2017-12-30 11:18] VITALS: BP 116/76; PULSE 74; RESP 20; TEMP 96.1; O2SAT 92
[2017-12-30] MEDS: cefTRIAXone INJ 1,000 MG in SODIUM CHLORIDE 0.9% INJ 100 ML IV SCH (14:33)
[2017-12-30] MEDS: ACETAMINOPHEN/HYDROcodone 325 MG/7.5 MG TAB PO PRN (14:41)
[2017-12-30 15:16] VITALS: BP 126/75; PULSE 65; RESP 20; TEMP 96.9; O2SAT 92
[2017-12-30] MEDS: MORPHINE SULFATE 4 MG/ML INJ IV PRN (16:28)
[2017-12-30] MEDS: SODIUM CHLORIDE 0.9% FLUSH 10 ML FLUSH IV FLUSH PRN (16:31)
--- NOTE | 2017-12-30 18:39 | HHI.GIFU ---
GI Follow-up Note Consult Follow-up Subjective: Patient laying in bed comfortably, feeling better .Some nausea, vomiting , but able to tolerate clear liquid diet.MRCP noted , no indication of CBD stone Objective: PHYSICAL EXAMINATION: Vitals signs stable No fever Vital Signs Date Time Temp Pulse Resp B/P (MAP) Pulse Ox O2 Delivery O2 Flow Rate FiO2 12/30/17 17:12 16 12/30/17 17:12 16 12/30/17 15:16 96.9 65 20 126/75 (92) 92 12/30/17 11:18 96.1 74 20 116/76 (89) 92 HEENT: Pupils round and reactive to light; normocephalic; atraumatic; jaundice. Throat is clear. NECK: Neck is supple, no JVD, no lymphadenopathy. CHEST: Chest is clear to auscultation and percussion. CARDIAC: Regular rate and rhythm with no murmur gallop or rubs. ABDOMEN: Soft, nondistended, nontender; no hepatosplenomegaly; bowel sounds are present in all four quadrants. EXTREMITIES: No clubbing, cyanosis, or edema. SKIN: Normal; rash-psoriasis ; no jaundice. 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 Available Data (labs, X- Rays, Procedues) : Laboratory Tests Test 12/29/17 01:50 12/29/17 04:10 12/29/17 08:30 12/29/17 22:06 White Blood Count 12.9 TH/MM3 12.0 TH/MM3 Red Blood Count 5.58 MIL/MM3 5.26 MIL/MM3 Hemoglobin 16.6 GM/DL 16.0 GM/DL Hematocrit 48.4 % 45.2 % Mean Corpuscular Volume 86.6 FL 85.9 FL Mean Corpuscular Hemoglobin 29.8 PG 30.5 PG Mean Corpuscular Hemoglobin Concent 34.4 % 35.5 % Red Cell Distribution Width 13.6 % 13.6 % Platelet Count 145 TH/MM3 138 TH/MM3 Mean Platelet Volume 10.6 FL 12.1 FL CBC Comment AUTO DIFF AUTO DIFF Differential Total Cells Counted 100 100 Neutrophils % (Manual) 30 % 27 % Band Neutrophils % 1 % 2 % Lymphocytes % 46 % 60 % Monocytes % 21 % 9 % Basophils % 2 % Neutrophils # (Manual) 4.0 TH/MM3 3.5 TH/MM3 Differential Comment FINAL DIFF MANUAL FINAL DIFF MANUAL Atypical Lymphocytes % Platelet Estimate LOW LOW Platelet Morphology Comment NORMAL NORMAL Red Cell Morphology Comment NORMAL NORMAL Urine Color BROWN Urine Turbidity CLEAR Urine pH 7.0 Urine Specific [place] 1.015 Urine Protein 100 mg/dL Urine Glucose (UA) 100 mg/dL Urine Ketones TRACE mg/dL Urine Occult Blood TRACE Urine Nitrite POS Urine Bilirubin LARGE Urine Urobilinogen GREATER/EQUAL 8.0 MG/DL Urine Leukocyte Esterase NEG Urine RBC 15-19 /hpf Urine WBC 9-14 /hpf Urine Squamous Epithelial Cells > 8 /hpf Urine Amorphous Sediment SMALL Urine Mucus MANY /lpf Microscopic Urinalysis Comment CULTURE INDICATED Blood Urea Nitrogen 9 MG/DL 7 MG/DL Creatinine 0.81 MG/DL 0.61 MG/DL Random Glucose 118 MG/DL 97 MG/DL Total Protein 7.6 GM/DL 6.9 GM/DL Albumin 3.5 GM/DL 3.1 GM/DL Calcium Level 9.4 MG/DL 8.7 MG/DL Alkaline Phosphatase 273 U/L 247 U/L Aspartate Amino Transf (AST/SGOT) 1137 U/L 895 U/L Alanine Aminotransferase (ALT/SGPT) 1758 U/L 1562 U/L Total Bilirubin 3.3 MG/DL 3.7 MG/DL Sodium Level 133 MEQ/L 139 MEQ/L Potassium Level 3.8 MEQ/L 3.8 MEQ/L Chloride Level 100 MEQ/L 106 MEQ/L Carbon Dioxide Level 28.1 MEQ/L 24.9 MEQ/L Anion Gap 5 MEQ/L 8 MEQ/L Estimat Glomerular Filtration Rate 105 ML/MIN 146 ML/MIN Lipase 82 U/L Ethyl Alcohol Level LESS THAN 3 MG/DL Prothrombin Time 12.9 SEC Prothromb Time International Ratio 1.3 RATIO Activated Partial Thromboplast Time 31.5 SEC Hepatitis A IgM Antibody NONREACTIVE Hepatitis B Surface Antigen NONREACTIVE Hepatitis B Core IgM Antibody REACTIVE Hepatitis C IgG Antibody REACTIVE Neutrophils (%) (Auto) 36.9 % Lymphocytes (%) (Auto) 42.8 % Monocytes (%) (Auto) 18.2 % Eosinophils (%) (Auto) 1.8 % Basophils (%) (Auto) 0.3 % Neutrophils # (Auto) 4.4 TH/MM3 Lymphocytes # (Auto) 5.2 TH/MM3 Monocytes # (Auto) 2.2 TH/MM3 Eosinophils # (Auto) 0.2 TH/MM3 Basophils # (Auto) 0.0 TH/MM3 Eosinophils % 2 % Lactic Acid Level 1.1 mmol/L Test 12/30/17 06:09 White Blood Count 15.4 TH/MM3 Red Blood Count 5.36 MIL/MM3 Hemoglobin 16.1 GM/DL Hematocrit 46.0 % Mean Corpuscular Volume 85.7 FL Mean Corpuscular Hemoglobin 30.1 PG Mean Corpuscular Hemoglobin Concent 35.1 % Red Cell Distribution Width 14.2 % Platelet Count 147 TH/MM3 Mean Platelet Volume 11.9 FL CBC Comment AUTO DIFF Differential Total Cells Counted 100 Neutrophils % (Manual) 37 % Band Neutrophils % 7 % Lymphocytes % 31 % Monocytes % 13 % Neutrophils # (Manual) 6.8 TH/MM3 Differential Comment FINAL DIFF MANUAL Atypical Lymphocytes 12 % Platelet Estimate LOW Platelet Morphology Comment NORMAL Red Cell Morphology Comment NORMAL Blood Urea Nitrogen 6 MG/DL Creatinine 0.61 MG/DL Random Glucose 121 MG/DL Total Protein 6.7 GM/DL Albumin 3.2 GM/DL Calcium Level 8.4 MG/DL Alkaline Phosphatase 253 U/L Aspartate Amino Transf (AST/SGOT) 585 U/L Alanine Aminotransferase (ALT/SGPT) 1398 U/L Total Bilirubin 4.5 MG/DL Sodium Level 139 MEQ/L Potassium Level 3.9 MEQ/L Chloride Level 107 MEQ/L Carbon Dioxide Level 24.0 MEQ/L Anion Gap 8 MEQ/L Estimat Glomerular Filtration Rate 146 ML/MIN ASSESSMENT/PLAN: elevated LFTS -work-up suggesting acute hepatitis b, hep c mrcp no indication of CBD stone , possible acute cholecystitis-patient had been evaluated bu surgery, possible elevation of LFTS secondary acute hepatitis nausea, vomiting secondary the above -better Recommendations : supportive care hep c viral load hep b viral load monitor lfts, cbc, pt/inr closely It was a pleasure seeing Phil Alvarado. Thank you for this consult. Entered by: Kristen Reyes MD Dec 30, 2017 18:39
[2017-12-30 20:00] VITALS: BP 135/77; PULSE 69; RESP 20; TEMP 97.5; O2SAT 96
[2017-12-31] VITALS: BP 144/89; PULSE 92; RESP 20; TEMP 100.2; O2SAT 96
[2017-12-31] MEDS: ACETAMINOPHEN/HYDROcodone 325 MG/7.5 MG TAB PO PRN ×4 (01:03→20:10)
[2017-12-31] MEDS: DOCUSATE SODIUM 50 MG/SENNA 8.6 MG TAB PO SCH ×2 (07:17→20:10)
[2017-12-31] MEDS: NICOTINE 21 MG/24 HR PATCH T-DERMAL SCH (07:17)
[2017-12-31] MEDS: REMOVE OLD PATCH T-DERMAL SCH (07:17)
[2017-12-31] MEDS: ONDANSETRON ODT 4 MG TAB PO PRN ×2 (07:18→13:36)
[2017-12-31] MEDS: SODIUM CHLORIDE 0.9% FLUSH 10 ML FLUSH IV FLUSH SCH ×2 (07:18→20:10)
[2017-12-31 07:24] VITALS: BP 165/95; PULSE 85; RESP 20; TEMP 97.6; O2SAT 96
[2017-12-31 08:24] LABS: AUTOMATED NEUTROPHIL # 6.2 TH/MM3 (1.8-7.7); BASOPHIL % 0.4 % (0.0-2.0); EOSINOPHIL # 0.4 TH/MM3 (0-0.4); EOSINOPHIL % 3.1 % (0.0-4.0); HEMATOCRIT 50.5 % (39.0-51.0); HEMOGLOBIN 16.5 GM/DL (13.0-17.0); LYMPHOCYTE # 4.4 TH/MM3 (1.0-4.8); MEAN CELL VOLUME 87.8 FL (80.0-100.0); MEAN CORPUSCULAR HEMOGLOBIN 28.8 PG (27.0-34.0); MEAN CORPUSCULAR HGB CONC 32.8 % (32.0-36.0); MEAN PLATELET VOLUME 10.2 FL (7.0-11.0); MONO % 10.2 % (0.0-8.0); MONOCYTE # 1.3 TH/MM3 (0-0.9); NEUT % 50.3 % (16.0-70.0); PLATELET COUNT 162 TH/MM3 (150-450); RED BLOOD COUNT 5.75 MIL/MM3 (4.50-5.90); RED CELL DISTRIBUTION WIDTH 14.1 % (11.6-17.2); WHITE BLOOD COUNT 12.3 TH/MM3 (4.0-11.0)
[2017-12-31 08:33] LABS: CHLORIDE 104 MEQ/L (98-107); SODIUM (NA) 137 MEQ/L (136-145)
[2017-12-31 08:36] LABS: BICARBONATE 25.8 MEQ/L (21.0-32.0); CALCIUM 8.5 MG/DL (8.5-10.1); GLUCOSE,RANDOM 108 MG/DL (74-106)
[2017-12-31 08:37] LABS: BLOOD UREA NITROGEN 5 MG/DL (7-18)
[2017-12-31 08:39] LABS: AST (GOT) 649 U/L (15-37); CREATININE 0.63 MG/DL (0.60-1.30); GLOMERULAR FILTRATION RATE 140 ML/MIN (>89)
[2017-12-31 08:41] LABS: TOTAL PROTEIN 6.6 GM/DL (6.4-8.2)
[2017-12-31 08:42] LABS: ALKALINE PHOSPHATASE 261 U/L (45-117)
[2017-12-31 08:47] LABS: ALT (GPT) 1318 U/L (12-78)
--- NOTE | 2017-12-31 09:00 | HHI.PR ---
Subjective Remarks Follow up for transaminitis, RUQ abdominal pain. Patient is currently doing well. She complains of persistent right upper quadrant abdominal pain. He had a mild episode of fever of 100.2F. Tolerating diet okay. Objective Vitals Vital Signs Date Time Temp Pulse Resp B/P (MAP) Pulse Ox O2 Delivery O2 Flow Rate FiO2 12/31/17 07:24 97.6 85 20 165/95 (118) 96 12/31/17 00:00 100.2 92 20 144/89 (107) 96 12/30/17 20:00 97.5 69 20 135/77 (96) 96 12/30/17 17:12 16 12/30/17 17:12 16 12/30/17 15:16 96.9 65 20 126/75 (92) 92 12/30/17 11:18 96.1 74 20 116/76 (89) 92 I/O 12/30/17 12/30/17 12/30/17 12/31/17 12/31/17 12/31/17 06:59 14:59 22:59 06:59 14:59 22:59 Intake Total 0 ml 960 ml 1060 ml Balance 0 ml 960 ml 1060 ml Intake Oral 0 ml 960 ml 60 ml IV Total 1000 ml # Voids 3 4 2 Result Diagram: 12/31/17 0820 12/31/17 0820 Imaging Last Impressions Skull X-Ray 12/30/17 0000 Signed Impressions: CONCLUSION: Patient is safe for MRI. Cholangiopancreatography MRI 12/30/17 0000 Signed Impressions: CONCLUSION: 1. Gallbladder wall thickening and pericholecystic fluid concerning for acute cholecystitis. 2. No intra or extrahepatic biliary ductal dilatation. Abdomen/Pelvis CT 12/29/17 0346 Signed Impressions: CONCLUSION: 1. There is low-density surrounding the gallbladder which could represent gall bladder wall thickening versus pericholecystic fluid. There are no calcified ga llstones or evidence of biliary obstruction. Gall Bladder Ultrasound 12/29/17 0000 Signed Impressions: CONCLUSION: Thickened gallbladder wall with pericholecystic fluid concerning for cholecysti tis. A gallstone was not seen. Objective Remarks GENERAL: Alert, oriented x 3, NAD. SKIN: Warm and dry. HEAD: Normocephalic. EYES: No scleral icterus. No injection or drainage. NECK: Supple, trachea midline. No JVD or lymphadenopathy. CARDIOVASCULAR: Regular rate and rhythm without murmurs, gallops, or rubs. RESPIRATORY: Breath sounds equal bilaterally. No accessory muscle use. GASTROINTESTINAL: Abdomen soft, mild tenderness to palpation over right upper quadrant. MUSCULOSKELETAL: No cyanosis, or edema. BACK: Nontender without obvious deformity. No CVA tenderness. Procedures None. A/P Problem List: (1) Acute cholecystitis ICD Code: K81.0 - Acute cholecystitis (2) Psoriasis ICD Code: L40.9 - Psoriasis, unspecified (3) Tobacco abuse ICD Code: Z72.0 - Tobacco use (4) Alcohol abuse ICD Code: F10.10 - Alcohol abuse, uncomplicated Assessment and Plan Mr. Alvarado is a pleasant 42-year-old male with a history of depression, psoriasis who presents to the emergency department on 12/29/2017 due to right upper quadrant abdominal pain, nausea vomiting that started 3-4 days prior to this admission. ED workup indicates probable cholecystitis. Acute cholecystitis -Increase dosage to ceftriaxone 2 g every 24 hours. No allergic reactions to ceftriaxone. -WBC is improved today from about 15 --> 12. -If he has persistent fever, will switch to Cipro + Flagyl IV. -General surgery is following for possible cholecystectomy on 01/01/2018. -Pain medications - [place] and Morphine PRN. -Appreciate GI and general surgery input. -Patient underwent MRCP on 12/30/2017. MRCP did not reveal any obstruction. Tobacco abuse Alcohol abuse -Counseled patient regarding tobacco and alcohol abuse. Psoriasis -outpatient follow-up. Full code. Adams. Kriss Naranjo DO Dec 31, 2017 09:00
[2017-12-31 11:06] VITALS: BP 167/98; PULSE 64; RESP 20; TEMP 97.3; O2SAT 98
[2017-12-31] MEDS: SODIUM CHLOR 0.9% 1000 ML INJ 1,000 ML IV SCH (12:32)
[2017-12-31 15:23] VITALS: BP 158/93; PULSE 65; RESP 20; TEMP 97.7; O2SAT 97
[2017-12-31] MEDS: cefTRIAXone INJ 2,000 MG in SODIUM CHLORIDE 0.9% INJ 100 ML IV SCH (15:34)
--- NOTE | 2017-12-31 18:13 | HHI.GIFU ---
Subjective Remarks Patient still complaining of some mid abdominal pain Mild nausea and vomiting continues Did note some dysphasia on day of admission but states none now Family member in the room for supportive care Temp max 100.2 (Padmaja Rousseau) Objective Vitals I&O Vital Signs Date Time Temp Pulse Resp B/P (MAP) Pulse Ox O2 Delivery O2 Flow Rate FiO2 12/31/17 15:23 97.7 65 20 158/93 (114) 97 12/31/17 11:06 97.3 64 20 167/98 (121) 98 12/31/17 07:24 97.6 85 20 165/95 (118) 96 12/31/17 00:00 100.2 92 20 144/89 (107) 96 12/30/17 20:00 97.5 69 20 135/77 (96) 96 I/O 12/30/17 12/30/17 12/30/17 12/31/17 12/31/17 12/31/17 07:00 15:00 23:00 07:00 15:00 23:00 Intake Total 0 ml 1960 ml 60 ml 1719 ml Balance 0 ml 1960 ml 60 ml 1719 ml Intake Oral 0 ml 960 ml 60 ml 720 ml IV Total 1000 ml 999 ml # Voids 3 4 2 3 Laboratory Laboratory Tests Test 12/31/17 08:20 White Blood Count 12.3 Red Blood Count 5.75 Hemoglobin 16.5 Hematocrit 50.5 Mean Corpuscular Volume 87.8 Mean Corpuscular Hemoglobin 28.8 Mean Corpuscular Hemoglobin Concent 32.8 Red Cell Distribution Width 14.1 Platelet Count 162 Mean Platelet Volume 10.2 Neutrophils (%) (Auto) 50.3 Lymphocytes (%) (Auto) 36.0 Monocytes (%) (Auto) 10.2 Eosinophils (%) (Auto) 3.1 Basophils (%) (Auto) 0.4 Neutrophils # (Auto) 6.2 Lymphocytes # (Auto) 4.4 Monocytes # (Auto) 1.3 Eosinophils # (Auto) 0.4 Basophils # (Auto) 0.0 CBC Comment DIFF FINAL Differential Comment Blood Urea Nitrogen 5 Creatinine 0.63 Random Glucose 108 Total Protein 6.6 Albumin 3.0 Calcium Level 8.5 Alkaline Phosphatase 261 Aspartate Amino Transf (AST/SGOT) 649 Alanine Aminotransferase (ALT/SGPT) 1318 Total Bilirubin 5.0 Sodium Level 137 Potassium Level 4.0 Chloride Level 104 Carbon Dioxide Level 25.8 Anion Gap 7 Estimat Glomerular Filtration Rate 140 Date/Time Source Procedure Growth Status 12/29/17 01:50 Urine Clean Catch Urine Culture - Final <10,000 CFU/ML MIXED GRAM POSITIVE FL... Complete Imaging Last Impressions Skull X-Ray 12/30/17 0000 Signed Impressions: CONCLUSION: Patient is safe for MRI. Cholangiopancreatography MRI 12/30/17 0000 Signed Impressions: CONCLUSION: 1. Gallbladder wall thickening and pericholecystic fluid concerning for acute cholecystitis. 2. No intra or extrahepatic biliary ductal dilatation. Abdomen/Pelvis CT 12/29/17 0346 Signed Impressions: CONCLUSION: 1. There is low-density surrounding the gallbladder which could represent gall bladder wall thickening versus pericholecystic fluid. There are no calcified ga llstones or evidence of biliary obstruction. Gall Bladder Ultrasound 12/29/17 0000 Signed Impressions: CONCLUSION: Thickened gallbladder wall with pericholecystic fluid concerning for cholecysti tis. A gallstone was not seen. Physical Exam HEENT: normocephalic; atraumatic; no jaundice. NECK: Supple CHEST: Even, unlabored CARDIAC: Regular rate and rhythm ABDOMEN: Soft, nondistended, still complaints of some mid abdominal pain in the gastric area with some nausea and vomiting; no hepatosplenomegaly; bowel sounds are present in all four quadrants. EXTREMITIES: No edema. SKIN: Normal; no rash; no jaundice. 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 Mild anxiety (Padmaja Rousseau) Assessment and Plan Assessment: (1) Choledocholithiasis ICD Codes: K80.50 - Calculus of bile duct without cholangitis or cholecystitis without obstruction (2) Hepatitis C antibody positive in blood ICD Codes: R76.8 - Other specified abnormal immunological findings in serum (3) Acute hepatitis B ICD Codes: B16.9 - Acute hepatitis B without delta-agent and without hepatic coma (4) Acute cholecystitis ICD Codes: K81.0 - Acute cholecystitis (5) Elevated liver enzymes ICD Codes: R74.8 - Abnormal levels of other serum enzymes Status: Acute Plan 12/31/2017 , patient continues to have mid abdominal pain with some nausea and vomiting. Patient states no EtOH in the past 2 years. MRCP showed gallbladder wall thickening and fluid concerning for acute cholecystitis but no biliary ductal dilatation CT of abdomen /pelvis on 2017 low density surrounding the gallbladder which could represent gallbladder thickening versus jordyn-cholecystic fluid no evidence of biliary obstruction. Labs reviewed showed decreased WBC count leukocytosis 12.3, current hemoglobin 16.5, low-grade fever of 100.2, Total bilirubin elevated mildly 5., AST 649 mild elevation , ALT 1318, elevated alkaline phosphatase level, hepatitis B core IgM antibody reactive hepatitis B DNA quantitative log pending, hepatitis C IgG antibody reactive, HCV RNA G genotype pending, possible viral hepatitis Acute cholecystitis with evidence of biliary obstruction Plan Diet n.p.o. at midnight for possible cholecystectomy on 01/01/2018 Pain management per attending Monitor labs with special attention to hemoglobin and WBC count Antibiotic therapy per attending Supportive care Patient was seen per myself and Dr. Palacios, note was written on her behalf (Padmaja Rousseau) Physician Comments agree with above (Kristen Palacios MD) Padmaja Rousseau Dec 31, 2017 18:13 Kristen Palacios MD Dec 31, 2017 21:18
[2017-12-31 20:00] VITALS: BP 118/63; PULSE 73; RESP 20; TEMP 96.4; O2SAT 93
[2018-01-01] VITALS: BP 123/77; PULSE 65; RESP 20; TEMP 96.1; O2SAT 93
[2018-01-01] MEDS: SODIUM CHLOR 0.9% 1000 ML INJ 1,000 ML IV SCH ×2 (05:41→16:58)
[2018-01-01 08:20] VITALS: BP 140/79; PULSE 88; RESP 18; TEMP 97.8; O2SAT 94
[2018-01-01] MEDS: REMOVE OLD PATCH T-DERMAL SCH (08:21)
[2018-01-01] MEDS: ACETAMINOPHEN/HYDROcodone 325 MG/7.5 MG TAB PO PRN ×3 (08:21→19:28)
[2018-01-01] MEDS: DOCUSATE SODIUM 50 MG/SENNA 8.6 MG TAB PO SCH ×2 (08:21→20:32)
[2018-01-01] MEDS: SODIUM CHLORIDE 0.9% FLUSH 10 ML FLUSH IV FLUSH SCH ×2 (08:21→20:32)
[2018-01-01] MEDS: NICOTINE 21 MG/24 HR PATCH T-DERMAL SCH (08:21)
--- NOTE | 2018-01-01 09:42 | HHI.PR ---
cc: Franki Kathleen MD Subjective Subjective Notes Resting in bed No issues overnight Objective Vitals/I&O Vital Signs Date Time Temp Pulse Resp B/P (MAP) Pulse Ox O2 Delivery O2 Flow Rate FiO2 01/01/18 00:00 96.1 65 20 123/77 (92) 93 12/29/17 04:00 Room Air Labs Date/Time Source Procedure Growth Status 12/29/17 01:50 Urine Clean Catch Urine Culture - Final <10,000 CFU/ML MIXED GRAM POSITIVE FL... Complete Cardiovascular: Regular Lungs: Clear Abdomen: Other (mild RUQ tenderness with palpation ) Extremities: No edema A/P Assessment and Plan 42 year old male with cholecystics; active hepatitis B/C -T-bili 5.0 yesterday -Will wait on lap luis armando for now -Regular diet -Recheck labs tomorrow -If total bilirubin decreasing may be able to do it in the upcoming days -Discussed with Rody Padilla/[facility] ISABEL Jan 01, 2018 09:42
[2018-01-01 12:00] VITALS: BP 143/90; PULSE 60; RESP 18; TEMP 97; O2SAT 94
[2018-01-01] MEDS: ONDANSETRON ODT 4 MG TAB PO PRN ×2 (13:13→20:32)
[2018-01-01] MEDS: cefTRIAXone INJ 2,000 MG in SODIUM CHLORIDE 0.9% INJ 100 ML IV SCH (13:14)
--- NOTE | 2018-01-01 13:50 | HHI.PR ---
Subjective Remarks Follow up for transaminitis, RUQ abdominal pain. Patient is currently doing well. He actually reports significant decrease in his abdominal pain. No fever or chills. Objective Vitals Vital Signs Date Time Temp Pulse Resp B/P (MAP) Pulse Ox O2 Delivery O2 Flow Rate FiO2 01/01/18 08:20 97.8 88 18 140/79 (99) 94 01/01/18 00:00 96.1 65 20 123/77 (92) 93 12/31/17 21:27 18 12/31/17 20:00 96.4 73 20 118/63 (81) 93 12/31/17 15:23 97.7 65 20 158/93 (114) 97 I/O 12/31/17 12/31/17 12/31/17 01/01/18 01/01/18 01/01/18 06:59 14:59 22:59 06:59 14:59 22:59 Intake Total 1060 ml 1719 ml 1240 ml Balance 1060 ml 1719 ml 1240 ml Intake Oral 60 ml 720 ml 240 ml IV Total 1000 ml 999 ml 1000 ml # Voids 2 3 3 # Bowel Movements 0 Result Diagram: 12/31/17 0820 12/31/17 0820 Imaging Last Impressions Skull X-Ray 12/30/17 0000 Signed Impressions: CONCLUSION: Patient is safe for MRI. Cholangiopancreatography MRI 12/30/17 0000 Signed Impressions: CONCLUSION: 1. Gallbladder wall thickening and pericholecystic fluid concerning for acute cholecystitis. 2. No intra or extrahepatic biliary ductal dilatation. Abdomen/Pelvis CT 12/29/17 0346 Signed Impressions: CONCLUSION: 1. There is low-density surrounding the gallbladder which could represent gall bladder wall thickening versus pericholecystic fluid. There are no calcified ga llstones or evidence of biliary obstruction. Gall Bladder Ultrasound 12/29/17 0000 Signed Impressions: CONCLUSION: Thickened gallbladder wall with pericholecystic fluid concerning for cholecysti tis. A gallstone was not seen. Objective Remarks GENERAL: Alert, oriented x 3, NAD. SKIN: Warm and dry. HEAD: Normocephalic. EYES: No scleral icterus. No injection or drainage. NECK: Supple, trachea midline. No JVD or lymphadenopathy. CARDIOVASCULAR: Regular rate and rhythm without murmurs, gallops, or rubs. RESPIRATORY: Breath sounds equal bilaterally. No accessory muscle use. GASTROINTESTINAL: Abdomen soft, mild tenderness to palpation over right upper quadrant. MUSCULOSKELETAL: No cyanosis, or edema. BACK: Nontender without obvious deformity. No CVA tenderness. Procedures None. A/P Problem List: (1) Acute cholecystitis ICD Code: K81.0 - Acute cholecystitis (2) Psoriasis ICD Code: L40.9 - Psoriasis, unspecified (3) Tobacco abuse ICD Code: Z72.0 - Tobacco use (4) Alcohol abuse ICD Code: F10.10 - Alcohol abuse, uncomplicated Assessment and Plan Mr. Alvarado is a pleasant 42-year-old male with a history of depression, psoriasis who presents to the emergency department on 12/29/2017 due to right upper quadrant abdominal pain, nausea vomiting that started 3-4 days prior to this admission. ED workup indicates probable cholecystitis. Acute cholecystitis -Continue ceftriaxone 2 g every 24 hours. No allergic reactions to ceftriaxone. -WBC is improved 15 --> 12. -General surgery is following for possible cholecystectomy. However due to increased bilirubin general surgery would like to wait until bilirubin starts to come down. -Pain medications - [place] and Morphine PRN. -Appreciate GI and general surgery input. -Patient underwent MRCP on 12/30/2017. MRCP did not reveal any obstruction. Tobacco abuse Alcohol abuse -Counseled patient regarding tobacco and alcohol abuse. Psoriasis -outpatient follow-up. Full code. Kriss Ornelas DO Jan 01, 2018 13:50
[2018-01-01] MEDS ORDERED: ENOXAPARIN SODIUM 40 MG/0.4 ML SYRINGE SQ SCH (14:00)
[2018-01-01 16:00] VITALS: BP 138/80; PULSE 64; RESP 18; TEMP 97; O2SAT 95
--- NOTE | 2018-01-01 17:59 | HHI.GIFU ---
Subjective Remarks resting in the bed, \ Ambulating in [place]. Abdominal pain diminished. No dull ache for now. No nausea/vomiting. HGB 16.5 Objective Vitals I&O Vital Signs Date Time Temp Pulse Resp B/P (MAP) Pulse Ox O2 Delivery O2 Flow Rate FiO2 01/01/18 08:20 97.8 88 18 140/79 (99) 94 01/01/18 00:00 96.1 65 20 123/77 (92) 93 12/31/17 21:27 18 12/31/17 20:00 96.4 73 20 118/63 (81) 93 I/O 12/31/17 12/31/17 12/31/17 01/01/18 01/01/18 01/01/18 07:00 15:00 23:00 07:00 15:00 23:00 Intake Total 60 ml 1719 ml 1240 ml 722 ml Balance 60 ml 1719 ml 1240 ml 722 ml Intake Oral 60 ml 720 ml 240 ml IV Total 999 ml 1000 ml 722 ml # Voids 2 3 3 # Bowel Movements 0 Laboratory Date/Time Source Procedure Growth Status 12/29/17 01:50 Urine Clean Catch Urine Culture - Final <10,000 CFU/ML MIXED GRAM POSITIVE FL... Complete Imaging Last Impressions Skull X-Ray 12/30/17 0000 Signed Impressions: CONCLUSION: Patient is safe for MRI. Cholangiopancreatography MRI 12/30/17 0000 Signed Impressions: CONCLUSION: 1. Gallbladder wall thickening and pericholecystic fluid concerning for acute cholecystitis. 2. No intra or extrahepatic biliary ductal dilatation. Abdomen/Pelvis CT 12/29/17 0346 Signed Impressions: CONCLUSION: 1. There is low-density surrounding the gallbladder which could represent gall bladder wall thickening versus pericholecystic fluid. There are no calcified ga llstones or evidence of biliary obstruction. Gall Bladder Ultrasound 12/29/17 0000 Signed Impressions: CONCLUSION: Thickened gallbladder wall with pericholecystic fluid concerning for cholecysti tis. A gallstone was not seen. Physical Exam HEENT: normocephalic; atraumatic; no jaundice. slim NECK: Supple CHEST: Even, unlabored CARDIAC: Regular rate and rhythm ABDOMEN: Soft, nondistended, No ABD apin at rest. , Minimal mid ABD pain, and RUQ. bowel sounds are present in all four quadrants. EXTREMITIES: No edema. SKIN: Normal; no rash; no jaundice. ANESTHESIA ATTENDING: answers simple questions Assessment and Plan Assessment: (1) Choledocholithiasis ICD Codes: K80.50 - Calculus of bile duct without cholangitis or cholecystitis without obstruction (2) Hepatitis C antibody positive in blood ICD Codes: R76.8 - Other specified abnormal immunological findings in serum (3) Acute hepatitis B ICD Codes: B16.9 - Acute hepatitis B without delta-agent and without hepatic coma (4) Acute cholecystitis ICD Codes: K81.0 - Acute cholecystitis (5) Elevated liver enzymes ICD Codes: R74.8 - Abnormal levels of other serum enzymes Status: Acute Plan 12/31/2017 , patient continues to have mid abdominal pain with some nausea and vomiting. Patient states no EtOH in the past 2 years. MRCP showed gallbladder wall thickening and fluid concerning for acute cholecystitis but no biliary ductal dilatation CT of abdomen /pelvis on 2017 low density surrounding the gallbladder which could represent gallbladder thickening versus jordyn-cholecystic fluid no evidence of biliary obstruction. Labs reviewed showed decreased WBC count leukocytosis 12.3, current hemoglobin 16.5, low-grade fever of 100.2, Total bilirubin elevated mildly 5., AST 649 mild elevation , ALT 1318, elevated alkaline phosphatase level, hepatitis B core IgM antibody reactive hepatitis B DNA quantitative log pending, hepatitis C IgG antibody reactive, HCV RNA G genotype pending, possible viral hepatitis Acute cholecystitis with evidence of biliary obstruction 01/01/18, Abdominal pain much more controlled today. Minimal Mid and RUQ pain. Surgical eval today, hold on Lap. luis armando. Bilirubin 5. 6/24, mild elevation. No fever today. Patient is hoping to go home, possible surgery in the future. GI can also see in the office, OP follow up. Denies any nausea, vomiting, Dyspepsia. Hep. labs pending, B and C ab positive. Plan Diet per attending Increase activity/ambulation Antibiotics continue Antiemetics. Monitor labs with special attention to hemoglobin and WBC count Antibiotic therapy per attending Supportive care Patient was seen per myself and Dr. Gupta, note was written on his behalf Padmaja Rousseau Jan 01, 2018 17:59
[2018-01-01 20:00] VITALS: BP 140/92; PULSE 64; RESP 18; TEMP 97.8; O2SAT 98
--- NOTE | 2018-01-01 20:22 | HHI.GIFU ---
Subjective Remarks No change and findings dictated by my SENIOR LINUX ENGINEER Objective Vitals I&O Vital Signs Date Time Temp Pulse Resp B/P (MAP) Pulse Ox O2 Delivery O2 Flow Rate FiO2 01/01/18 20:00 97.8 64 18 140/92 (108) 98 01/01/18 16:00 97.0 64 18 138/80 (99) 95 01/01/18 12:00 97.0 60 18 143/90 (107) 94 01/01/18 08:20 97.8 88 18 140/79 (99) 94 01/01/18 00:00 96.1 65 20 123/77 (92) 93 12/31/17 21:27 18 I/O 12/31/17 12/31/17 12/31/17 01/01/18 01/01/18 01/01/18 07:00 15:00 23:00 07:00 15:00 23:00 Intake Total 60 ml 1719 ml 1240 ml 722 ml Balance 60 ml 1719 ml 1240 ml 722 ml Intake Oral 60 ml 720 ml 240 ml IV Total 999 ml 1000 ml 722 ml # Voids 2 3 3 # Bowel Movements 0 Laboratory Date/Time Source Procedure Growth Status 12/29/17 01:50 Urine Clean Catch Urine Culture - Final <10,000 CFU/ML MIXED GRAM POSITIVE FL... Complete Physical Exam HEENT: normocephalic; atraumatic; no jaundice. slim NECK: Supple CHEST: Even, unlabored CARDIAC: Regular rate and rhythm ABDOMEN: Soft liver and spleen palpable no ascites bowel sounds normal EXTREMITIES: No edema. SKIN: Normal; no rash; jaundice present OPTOMETRY ASSISTANT: answers simple questions Assessment and Plan Assessment: (1) Choledocholithiasis ICD Codes: K80.50 - Calculus of bile duct without cholangitis or cholecystitis without obstruction (2) Hepatitis C antibody positive in blood ICD Codes: R76.8 - Other specified abnormal immunological findings in serum (3) Acute hepatitis B ICD Codes: B16.9 - Acute hepatitis B without delta-agent and without hepatic coma (4) Acute cholecystitis ICD Codes: K81.0 - Acute cholecystitis (5) Elevated liver enzymes ICD Codes: R74.8 - Abnormal levels of other serum enzymes Status: Acute Plan 12/31/2017 , patient continues to have mid abdominal pain with some nausea and vomiting. Patient states no EtOH in the past 2 years. MRCP showed gallbladder wall thickening and fluid concerning for acute cholecystitis but no biliary ductal dilatation CT of abdomen /pelvis on 2017 low density surrounding the gallbladder which could represent gallbladder thickening versus jordyn-cholecystic fluid no evidence of biliary obstruction. Labs reviewed showed decreased WBC count leukocytosis 12.3, current hemoglobin 16.5, low-grade fever of 100.2, Total bilirubin elevated mildly 5., AST 649 mild elevation , ALT 1318, elevated alkaline phosphatase level, hepatitis B core IgM antibody reactive hepatitis B DNA quantitative log pending, hepatitis C IgG antibody reactive, HCV RNA G genotype pending, Patient likely has acute hepatitis B. CT and MRI findings consistent with cholecystitis accompanying acute hepatitis. No evidence of symptomatic gallstone disease 01/01/18, Abdominal pain much more controlled today. Minimal Mid and RUQ pain. Surgical eval today, hold on Lap. luis armando. Bilirubin 5. 6/24, mild elevation. No fever today. Patient is hoping to go home, possible surgery in the future. GI can also see in the office, OP follow up. Denies any nausea, vomiting, Dyspepsia. Hep. labs pending, B and C ab positive. Plan Diet per attending Increase activity/ambulation Antibiotics continue Antiemetics. Monitor labs with special attention to hemoglobin and WBC count Antibiotic therapy per attending Supportive care Will not recommend cholecystectomy at the present time Patient was seen per myself and Dr. Gupta, note was written on his behalf Stepan Gupta MD Jan 01, 2018 20:22
[2018-01-01] MEDS: MORPHINE SULFATE 4 MG/ML INJ IV PRN (20:31)
[2018-01-02] VITALS: BP 155/93; PULSE 58; RESP 20; TEMP 98.3; O2SAT 96
[2018-01-02] MEDS: ACETAMINOPHEN/HYDROcodone 325 MG/7.5 MG TAB PO PRN (01:19)
[2018-01-02 06:16] LABS: AUTOMATED NEUTROPHIL # 3.6 TH/MM3 (1.8-7.7); BASOPHIL # 0.1 TH/MM3 (0-0.2); BASOPHIL % 1.3 % (0.0-2.0); EOSINOPHIL # 0.8 TH/MM3 (0-0.4); HEMATOCRIT 44.9 % (39.0-51.0); HEMOGLOBIN 14.9 GM/DL (13.0-17.0); LYMPH % 34.1 % (9.0-44.0); MEAN CELL VOLUME 87.9 FL (80.0-100.0); MEAN CORPUSCULAR HEMOGLOBIN 29.1 PG (27.0-34.0); MEAN CORPUSCULAR HGB CONC 33.1 % (32.0-36.0); MONO % 14.6 % (0.0-8.0); MONOCYTE # 1.3 TH/MM3 (0-0.9); PLATELET COUNT 171 TH/MM3 (150-450); RED BLOOD COUNT 5.11 MIL/MM3 (4.50-5.90); RED CELL DISTRIBUTION WIDTH 14.4 % (11.6-17.2); WHITE BLOOD COUNT 8.8 TH/MM3 (4.0-11.0)
[2018-01-02 06:18] LABS: CHLORIDE 105 MEQ/L (98-107); SODIUM (NA) 140 MEQ/L (136-145)
[2018-01-02 06:21] LABS: CALCIUM 8.7 MG/DL (8.5-10.1)
[2018-01-02 06:22] LABS: ALBUMIN 2.9 GM/DL (3.4-5.0); BICARBONATE 27.3 MEQ/L (21.0-32.0); BLOOD UREA NITROGEN 5 MG/DL (7-18); GLUCOSE,RANDOM 106 MG/DL (74-106)
[2018-01-02 06:25] LABS: AST (GOT) 442 U/L (15-37); CREATININE 0.53 MG/DL (0.60-1.30); GLOMERULAR FILTRATION RATE 171 ML/MIN (>89)
[2018-01-02 06:27] LABS: TOTAL BILIRUBIN ADULT 3.6 MG/DL (0.2-1.0); TOTAL PROTEIN 6.8 GM/DL (6.4-8.2)
[2018-01-02 06:28] LABS: ALKALINE PHOSPHATASE 241 U/L (45-117)
[2018-01-02 06:33] LABS: ALT (GPT) 1059 U/L (12-78)
[2018-01-02 07:26] VITALS: BP 132/77; PULSE 57; RESP 20; TEMP 96.4; O2SAT 94
--- NOTE | 2018-01-02 08:02 | HHI.PR ---
cc: Franki Kathleen MD Subjective Subjective Notes Resting in bed No complaints Objective Vitals/I&O Vital Signs Date Time Temp Pulse Resp B/P (MAP) Pulse Ox O2 Delivery O2 Flow Rate FiO2 01/02/18 07:26 96.4 57 20 132/77 (95) 94 Labs Laboratory Tests Test 01/02/18 05:05 White Blood Count 8.8 Red Blood Count 5.11 Hemoglobin 14.9 Hematocrit 44.9 Mean Corpuscular Volume 87.9 Mean Corpuscular Hemoglobin 29.1 Mean Corpuscular Hemoglobin Concent 33.1 Red Cell Distribution Width 14.4 Platelet Count 171 Mean Platelet Volume 11.0 Neutrophils (%) (Auto) 41.0 Lymphocytes (%) (Auto) 34.1 Monocytes (%) (Auto) 14.6 Eosinophils (%) (Auto) 9.0 Basophils (%) (Auto) 1.3 Neutrophils # (Auto) 3.6 Lymphocytes # (Auto) 3.0 Monocytes # (Auto) 1.3 Eosinophils # (Auto) 0.8 Basophils # (Auto) 0.1 CBC Comment DIFF FINAL Differential Comment Blood Urea Nitrogen 5 Creatinine 0.53 Random Glucose 106 Total Protein 6.8 Albumin 2.9 Calcium Level 8.7 Alkaline Phosphatase 241 Aspartate Amino Transf (AST/SGOT) 442 Alanine Aminotransferase (ALT/SGPT) 1059 Total Bilirubin 3.6 Sodium Level 140 Potassium Level 3.6 Chloride Level 105 Carbon Dioxide Level 27.3 Anion Gap 8 Estimat Glomerular Filtration Rate 171 Date/Time Source Procedure Growth Status 12/29/17 01:50 Urine Clean Catch Urine Culture - Final <10,000 CFU/ML MIXED GRAM POSITIVE FL... Complete Cardiovascular: Regular Lungs: Clear Abdomen: Non-distended, Other (mildly tender in RUQ tenderness ) Extremities: No edema A/P Assessment and Plan 42 year old male with cholecystics; active hepatitis B/C -T-bili 3.6 today -Will wait on lap luis armando for now as outpatient -Regular diet -Discussed with Lina ISABEL -Follow up in 2-3 weeks to discuss elective procedure Joselyn,Rody B. TIME CLERK/Medical Bill Processor TIME CLERK Jan 02, 2018 08:02
[2018-01-02] MEDS: SODIUM CHLOR 0.9% 1000 ML INJ 1,000 ML IV SCH (08:10)
[2018-01-02] MEDS: REMOVE OLD PATCH T-DERMAL SCH (09:00)
[2018-01-02] MEDS: SODIUM CHLORIDE 0.9% FLUSH 10 ML FLUSH IV FLUSH SCH (09:00)
[2018-01-02] MEDS: NICOTINE 21 MG/24 HR PATCH T-DERMAL SCH (09:56)
[2018-01-02] MEDS: DOCUSATE SODIUM 50 MG/SENNA 8.6 MG TAB PO SCH (09:56)
[2018-01-02] MEDS ORDERED: [UNRECOGNIZED DRUG - CODE] TOPICAL (10:44)
[2018-01-02] MEDS ORDERED: PROM25TA10 PO (10:44)
[2018-01-02] MEDS ORDERED: AMLO5 PO (10:44)
--- NOTE | 2018-01-02 10:44 | HHI.DCPOC ---
Discharge Care Plan Diagnosis: (1) Psoriasis (2) Acute cholecystitis (3) Choledocholithiasis Goals to Promote Your Health * To prevent worsening of your condition and complications * To maintain your health at the optimal level Directions to Meet Your Goals Take your medications as prescribed Follow your dietary instruction Follow activity as directed Keep your appointments as scheduled Take your immunizations and boosters as scheduled If your symptoms worsen call your PCP, if no PCP go to Urgent Care Center or Emergency Room Smoking is Dangerous to Your Health. Avoid second hand smoke Call the 24-hour hour crisis hotline for domestic abuse at Peggy Hilliard MD Jan 02, 2018 10:44
--- NOTE | 2018-01-02 10:47 | HHI.DS ---
Discharge Summary Admission Date Jan 01, 2018 at 15:46 Discharge Date: Jan 02, 2018 Admitting Diagnosis Abdominal pain, elevated liver enzymes, nausea and vomiting (1) Acute cholecystitis ICD Code: K81.0 - Acute cholecystitis Status: Acute (2) Psoriasis ICD Code: L40.9 - Psoriasis, unspecified Status: Chronic (3) Tobacco abuse ICD Code: Z72.0 - Tobacco use Status: Chronic (4) Alcohol abuse ICD Code: F10.10 - Alcohol abuse, uncomplicated Status: Chronic Procedures None. Brief History - From Admission Mr. Alvarado is a pleasant 42-year-old male with a history of alcohol abuse, psoriasis who presented to the emergency department on 12/29/2017 due to right upper quadrant abdominal pain as well as nausea and vomiting for the last 3 weeks. Patient denies any blood in the vomitus or stool. He reports no chest pain, shortness of breath, fever. However he has been having a lot of chills. ED workup indicates leukocytosis with WBC 12.0, AST 1137, ALT 1758, alk phos 273 total bilirubin 3.3. Gallbladder ultrasound shows pericholecystic fluid concerning for cholecystitis. CBC/BMP: 01/02/18 0505 01/02/18 0505 Significant Findings Laboratory Tests Test 12/31/17 08:20 01/02/18 05:05 White Blood Count 12.3 TH/MM3 (4.0-11.0) Monocytes (%) (Auto) 10.2 % (0.0-8.0) 14.6 % (0.0-8.0) Monocytes # (Auto) 1.3 TH/MM3 (0-0.9) 1.3 TH/MM3 (0-0.9) Blood Urea Nitrogen 5 MG/DL (7-18) 5 MG/DL (7-18) Random Glucose 108 MG/DL (74-106) Albumin 3.0 GM/DL (3.4-5.0) 2.9 GM/DL (3.4-5.0) Alkaline Phosphatase 261 U/L (45-117) 241 U/L (45-117) Aspartate Amino Transf (AST/SGOT) 649 U/L (15-37) 442 U/L (15-37) Alanine Aminotransferase (ALT/SGPT) 1318 U/L (12-78) 1059 U/L (12-78) Total Bilirubin 5.0 MG/DL (0.2-1.0) 3.6 MG/DL (0.2-1.0) Eosinophils (%) (Auto) 9.0 % (0.0-4.0) Eosinophils # (Auto) 0.8 TH/MM3 (0-0.4) Creatinine 0.53 MG/DL (0.60-1.30) Imaging Last Impressions Skull X-Ray 12/30/17 Signed Impressions: CONCLUSION: Patient is safe for MRI. Cholangiopancreatography MRI 12/30/17 Signed Impressions: CONCLUSION: 1. Gallbladder wall thickening and pericholecystic fluid concerning for acute cholecystitis. 2. No intra or extrahepatic biliary ductal dilatation. Abdomen/Pelvis CT 12/29/17 0346 Signed Impressions: CONCLUSION: 1. There is low-density surrounding the gallbladder which could represent gall bladder wall thickening versus pericholecystic fluid. There are no calcified ga llstones or evidence of biliary obstruction. Gall Bladder Ultrasound 12/29/17 Signed Impressions: CONCLUSION: Thickened gallbladder wall with pericholecystic fluid concerning for cholecysti tis. A gallstone was not seen. PE at Discharge GENERAL: Alert, oriented x 3, NAD. SKIN: Warm and dry. HEAD: Normocephalic. EYES: No scleral icterus. No injection or drainage. NECK: Supple, trachea midline. No JVD or lymphadenopathy. CARDIOVASCULAR: Regular rate and rhythm without murmurs, gallops, or rubs. RESPIRATORY: Breath sounds equal bilaterally. No accessory muscle use. GASTROINTESTINAL: Abdomen soft, mild tenderness to palpation over right upper quadrant. MUSCULOSKELETAL: No cyanosis, or edema. BACK: Nontender without obvious deformity. No CVA tenderness. Pt update on day of discharge Patient seen and evaluated in follow-up for abdominal pain which is resolved. Tolerating diet. Discharge plans discussed with patient who is in agreement. Patient also evaluate for psoriasis topical ointment recommended. Blood pressure improved on amlodipine Hospital Course This patient a 42-year-old gentleman with abdominal pain and associated nausea and vomiting which was due to gallbladder inflammation/cholecystitis. He did have MRCP and was seen by general surgery. LFTs were quite elevated and patient was recommended for cholecystectomy as an outpatient Pt Condition on Discharge: Good Discharge Disposition: Discharge Home Discharge Time: <= 30 minutes Discharge Instructions DIET: Follow Instructions for: Low Fat Diet Activities you can perform: Regular-No Restrictions Follow up Referrals: Surgical - 3 Weeks with Franki Kathleen MD New Medications: Amcinonide Topical (Amcinonide Topical) 0.1% Oint 1 APPLIC TOPICAL BID for Skin Treatment, #60 GM 3 Refills Promethazine (Phenergan) 25 Mg Tablet 25 MG PO ONCE for Nausea/Vomiting, #12 TAB 0 Refills Continued Medications: Amlodipine (Norvasc) 5 Mg Tab 5 MG PO DAILY for Blood Pressure Management, #30 TAB 0 Refills (This prescription has been renewed) Peggy Hilliard MD Jan 02, 2018 10:47
[2018-01-02] MEDS ORDERED: METHADONE HCL 10 MG TAB PO SCH (11:00)
[2018-01-02 11:16] VITALS: BP 161/90; PULSE 64; RESP 20; TEMP 96.5; O2SAT 95
== END 2018-01-02 11:59 | disposition home or self-care (01) | DRG 445 ==
LOC: PHED 00:57 → INTOOBSV 04:13 → PHEDA 04:13 → PH3B 05:02 → OBSVTOIN 01-01 15:46
PROVIDERS: ADMIT Hospitalist; ATTEND Hospitalist
DX: K81.0 Acute cholecystitis (principal); B16.9 Acute hepatitis B without delta-agent and without hepatic coma; I10 Essential (primary) hypertension; B17.10 Acute hepatitis C without hepatic coma; E86.0 Dehydration; L40.9 Psoriasis, unspecified; H91.93 Unspecified hearing loss, bilateral; F10.10 Alcohol abuse, uncomplicated; F17.210 Nicotine dependence, cigarettes, uncomplicated; F32.9 Major depressive disorder, single episode, unspecified; Y90.0 Blood alcohol level of less than 20 mg/100 ml; Z88.0 Allergy status to penicillin
CPT/HCPCS: 70250; 74177; 74181; 76377; 76705; 80053; 80074; 80307; 81001; 83605; 83690; 85007; 85025; 85027; 85610; 85730; 87086; 87517; 87522; 87902; 90732; 96361; 96366; 96374; 96375; C9113; G0378; J0696; J0780; J1650; J2270; J7030; Q9967